=== PATIENT | female | born 1970 | race Hispanic/Latino ===

== ENCOUNTER 2017-10-28 03:21 | Emergency (ER) | payer SELFPAY ==
[2017-10-28 04:43] LABS: Basophils # (Auto) 0.1 K/mm3 (0.0-0.1); Basophils % (Auto) 0.8 % (0.0-1.8); Eosinophils # (Auto) 0.4 K/mm3 (0.0-0.4); Eosinophils % (Auto) 4.7 % (0.0-4.3); Hematocrit 38.1 % (30.3-42.9); Lymphocytes % (Auto) 23.6 % (13.4-35.0); Mean Corpuscular HGB Conc 32 % (30-34); Mean Corpuscular Hemoglobin 26 pg (28-32); Mean Corpuscular Volume 81 fl (79-97); Monocytes # (Auto) 0.5 K/mm3 (0.0-0.8); Monocytes % (Auto) 5.7 % (0.0-7.3); Platelet Count 307 K/mm3 (140-440); Red Cell Distribution Width 20.9 % (13.2-15.2)
[2017-10-28 04:56] LABS: Alanine Aminotransferase 8 units/L (7-56); Albumin 4.1 g/dL (3.9-5); BUN/Creatinine Ratio 20; Blood Urea Nitrogen 18 mg/dL (7-17); Calcium 8.5 mg/dL (8.4-10.2); Hemolysis Index 1
[2017-10-28 06:12] LABS: Bacteria,Urine 1+ /HPF (Negative); Bilirubin,Urine NEG (Negative); Blood,Urine LG (Negative); Color,Urine Yellow (Yellow); Hyaline Casts,Urine 35 /LPF; Mucus,Urine 3+ /HPF; Urobilinogen,Urine < 2.0 mg/dL (<2.0)
[2017-10-28 06:16] LABS: HCG Qualitative,Urine Negative (Negative)
--- NOTE | 2017-10-28 06:19 | Emergency Department Report ---
ED Female HPI - General Chief complaint: Vaginal Bleeding Stated complaint: VAGINAL BLEEDING Time Seen by Provider: 10/28/17 06:17 Source: patient, EMS Mode of arrival: Stretcher Limitations: No Limitations - History of Present Illness Initial comments: 47-year-old female states that she was amenorrheic essentially since July and then started having a period a few days ago. Prior to that she stated that she had normal menses of 4-5 days every month. The patient denies fever or chills. She is comfortably and talking on her cell phone now. 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 MD Complaint: vaginal bleeding -: Gradual Worsens with: none - Related Data Previous Rx's Medication Instructions Recorded Last Taken Type HYDROcodone/APAP 10-325 [[place] 1 each PO Q6HR PRN #30 tablet 09/02/13 Unknown Rx 10-325 mg TAB] Lisinopril/Hydrochlorothiazide 1 each PO QDAY #30 tablet 09/02/13 Unknown Rx [Zestoretic 20-25 mg] Cefuroxime [Ceftin] 250 mg PO Q12H #14 tablet 10/28/17 Unknown Rx Allergies Allergy/AdvReac Type Severity Reaction Status Date / Time No Known Allergies Allergy Verified 09/02/13 06:55 ED Review of Systems ROS: Stated complaint: VAGINAL BLEEDING Other details as noted in HPI Constitutional: denies: chills, fever Eyes: denies: eye pain, eye discharge, vision change ENT: denies: ear pain, throat pain Respiratory: denies: cough, shortness of breath, wheezing Cardiovascular: denies: chest pain, palpitations Endocrine: no symptoms reported Gastrointestinal: denies: abdominal pain, nausea, diarrhea Genitourinary: as per HPI, abnormal menses. denies: urgency, dysuria, discharge Musculoskeletal: denies: back pain, joint swelling, arthralgia Skin: denies: rash, lesions Neurological: denies: headache, weakness, paresthesias Psychiatric: denies: anxiety, depression Hematological/Lymphatic: denies: easy bleeding, easy bruising ED Past Medical Hx - Past Medical History Previous Medical History?: Yes Hx Hypertension: Yes (out of medications for 3 years) - Social History Smoking Status: Current Every Day Smoker Substance Use Type: Alcohol Other Social History: Further social history as per triage note - Medications Home Medications: Home Medications Medication Instructions Recorded Confirmed Last Taken Type HYDROcodone/APAP 10-325 [[place] 1 each PO Q6HR PRN #30 tablet 09/02/13 Unknown Rx 10-325 mg TAB] Lisinopril/Hydrochlorothiazide 1 each PO QDAY #30 tablet 09/02/13 Unknown Rx [Zestoretic 20-25 mg] Cefuroxime [Ceftin] 250 mg PO Q12H #14 tablet 10/28/17 Unknown Rx ED Physical Exam - General Limitations: No Limitations General appearance: alert, in no apparent distress - Head Head exam: Present: atraumatic, normocephalic - Eye Eye exam: Present: normal appearance, PERRL, EOMI. Absent: scleral icterus - ENT ENT exam: Present: mucous membranes moist - Neck Neck exam: Present: normal inspection - Respiratory Respiratory exam: Present: normal lung sounds bilaterally. Absent: respiratory distress - Cardiovascular Cardiovascular Exam: Present: regular rate, normal rhythm. Absent: systolic murmur, diastolic murmur, rubs, gallop - GI/Abdominal GI/Abdominal exam: Present: soft, normal bowel sounds. Absent: distended, tenderness, guarding, rebound, rigid, organomegaly, mass, bruit, pulsatile mass , hernia - Extremities Exam Extremities exam: Present: normal inspection - Back Exam Back exam: Present: normal inspection. Absent: CVA tenderness (R), CVA tenderness (L) - Neurological Exam Neurological exam: Present: alert, oriented X3, CN II-XII intact. Absent: motor sensory deficit - Psychiatric Psychiatric exam: Present: normal affect, normal mood - Skin Skin exam: Present: warm, dry, intact, normal color. Absent: rash ED Course Vital Signs 10/28/17 03:44 Temperature 98.8 F Pulse Rate 98 H Respiratory 18 Rate Blood Pressure 149/71 Blood Pressure 149/71 [Left] O2 Sat by Pulse 100 Oximetry - Reevaluation(s) Reevaluation #1: No complaints of pain in the emergency department. 10/28/17 09:24 Reevaluation #2: The patient was given a copy of her ultrasound. She was directed that it requires follow-up and repeat and referred to [facility]GER. 10/28/17 09:25 ED Medical Decision Making - Lab Data Result diagrams: 10/28/17 04:31 10/28/17 04:31 Laboratory Results - last 24 hr 04/0710/28/17 10/28/17 04:31 04:31 05:38 WBC 8.3 RBC 4.70 Hgb 12.0 Hct 38.1 MCV 81 MCH 26 L MCHC 32 RDW 20.9 H Plt Count 307 Lymph % (Auto) 23.6 [place] % (Auto) 5.7 Eos % (Auto) 4.7 H Baso % (Auto) 0.8 Lymph # 2.0 [place] # 0.5 Eos # 0.4 Baso # 0.1 Seg Neutrophils % 65.2 Seg Neutrophils # 5.4 Sodium 141 Potassium 4.2 Chloride 104.1 Carbon Dioxide 22 Anion Gap 19 BUN 18 H Creatinine 0.9 Estimated GFR > 60 BUN/Creatinine Ratio 20 Glucose 110 H Calcium 8.5 Total Bilirubin < 0.20 AST 15 ALT 8 Alkaline Phosphatase 70 Total Protein 6.8 Albumin 4.1 Albumin/Globulin Ratio 1.5 Urine Color Yellow Urine Turbidity Slightly cloudy Urine pH 5.0 Ur Specific [place] 1.027 Urine Protein 30 mg/dl Urine Glucose (UA) Neg Urine Ketones Neg Urine Blood Lg Urine Nitrite Pos Urine Bilirubin Neg Urine Urobilinogen < 2.0 Ur Leukocyte Esterase Mod Urine WBC (Auto) 52.0 H Urine RBC (Auto) 5.0 U Epithel Cells (Auto) 5.0 Urine Bacteria (Auto) 1+ Ur Renal Epithelial Cell Not Reportable Hyaline Casts 35 Urine Mucus 3+ Urine HCG, Qual Negative - Radiology Data Radiology results: report reviewed (ultrasound with fibroids and complex ovarian cyst) Critical care attestation.: If time is entered above; I have spent that time in minutes in the direct care of this critically ill patient, excluding procedure time. ED Disposition Clinical Impression: Dysfunctional uterine bleeding Uterine leiomyoma Qualifiers: Uterine leiomyoma location: unspecified location Qualified Code(s): D25.9 - Leiomyoma of uterus, unspecified Ovarian cyst Qualifiers: Laterality: left Qualified Code(s): N83.202 - Unspecified ovarian cyst, left side Acute cystitis Qualifiers: Hematuria presence: without hematuria Qualified Code(s): N30.00 - Acute cystitis without hematuria Disposition: TO HOME OR SELFCARE Is pt being admited?: No Does the pt Need Aspirin: No Condition: Stable Instructions: Urinary Tract Infection in Women (ED), Dysfunctional Uterine Bleeding (ED), Uterine Fibroids (ED), Ovarian Cyst (ED) Additional Instructions: Follow-up with annealing oven operator. It is recommended ultrasound should be repeated in 6 weeks per radiologist. Rx antibiotic for urinary tract infection. A urine culture is pending to verify that he return antibiotic is appropriate for the bacteria causing your UTI. Prescriptions: Cefuroxime [Ceftin] 250 mg PO Q12H #14 tablet Referrals: ERASMO MACEDO MD [Primary Care Provider] - 3-5 Days [facility] [Provider Group] - 2-3 Days Time of Disposition: 09:29
--- NOTE | 2017-10-28 08:04 | Ultrasound Report ---
FINAL REPORT EXAM: US PELVIC COMPLETE, US TRANSVAGINAL HISTORY: Vaginal bleeding. TECHNIQUE: Directed transabdominal and transvaginal ultrasound examination of the pelvis was performed. No prior studies are available for comparison. FINDINGS: The uterus is anteverted, and measures 4.5 x 4.2 x 7.6 cm. There are several subcentimeter nabothian cysts in the cervix. There are ovoid hypoechoic lesions in the uterus, measuring 1.5 x 1.4 x 2.0 cm in the subendometrial fundus, and 1.9 x 1.7 x 2.0 cm in the anterior fundus. These most likely represent fibroids. The endometrium measures 0.9 cm, within normal limits for patient's age. The right ovary measures 2.8 x 2.4 x 3.7 cm, and contains normal subcentimeter follicles. The left ovary measures 2.7 x 1.4 x 3.6 cm, and also contains subcentimeter follicles. The left ovary also demonstrates a solid hypoechoic lesion measuring 1.1 cm, probably representing hemorrhagic cyst. There is appropriate color doppler flow in both ovaries, without evidence of torsion. No other adnexal mass is seen. There is no significant pelvic free fluid. IMPRESSION: 1. Probable uterine fibroids, including 1.5 x 1.4 x 2.0 cm subendometrial lesion at the fundus. 2. 1.1 cm complex left ovarian lesion, probably hemorrhagic cyst. Given internal complexity, follow-up exam in 6-8 weeks is recommended to document resolution.
[2017-10-28 09:44] VITALS: BP 136/67
== END 2017-10-28 09:41 | disposition home or self-care (01) ==
LOC: ED 03:21
DX: D25.9 Leiomyoma of uterus, unspecified (principal); N83.202 Unspecified ovarian cyst, left side; N30.00 Acute cystitis without hematuria; I10 Essential (primary) hypertension; F17.200 Nicotine dependence, unspecified, uncomplicated
CPT/HCPCS: 36415; 76830; 76856; 80053; 81001; 81025; 85025; 87076; 87086; 87186; 99284

== ENCOUNTER 2018-01-15 17:43 | Inpatient (IN) | payer OTHER ==
[2018-01-15] MEDS ORDERED: NACL 0.9% 1000 ML IV ONE (18:06)
[2018-01-15 18:42] LABS: Hematocrit 36.8 % (30.3-42.9); Hemoglobin 11.8 gm/dl (10.1-14.3); Mean Corpuscular HGB Conc 32 % (30-34); Mean Corpuscular Volume 80 fl (79-97); Platelet Count 247 K/mm3 (140-440); Red Blood Count 4.59 M/mm3 (3.65-5.03); Red Cell Distribution Width 17.2 % (13.2-15.2)
[2018-01-15 18:48] LABS: Mean Corpuscular Hemoglobin 26 pg (28-32)
[2018-01-15 18:56] LABS: Alanine Aminotransferase 12 units/L (7-56); Albumin 3.8 g/dL (3.9-5); BUN/Creatinine Ratio 11; Blood Urea Nitrogen 10 mg/dL (7-17); Calcium 8.9 mg/dL (8.4-10.2); Hemolysis Index 8
[2018-01-15] MEDS ORDERED: ZOSYN/NS 4.5GM/100ML 4.5 GM/100 ML VIAL IV SCH (19:00)
[2018-01-15] MEDS ORDERED: VANCOMYCIN/NS 1 GM/250 ML 1 GM/250 ML BAG IV ONE (19:00)
--- NOTE | 2018-01-15 19:27 | XRay Report ---
FINAL REPORT PROCEDURE: Semi upright AP chest x-ray TECHNIQUE: Chest radiograph anteroposterior view. CPT 80639 HISTORY: dyspnea COMPARISON: No prior studies are available for comparison. FINDINGS: Heart: Magnified due to projection, appears to be normal size.. Mediastinum/Vessels: Normal. Lungs/Pleural space: Normal. Bony thorax: No acute osseous abnormality. Life support devices: None. IMPRESSION: No acute cardiopulmonary abnormality.
[2018-01-15 19:32] LABS: Basophils % (Manual) 0 % (0.0-1.8); Eosinophils % (Manual) 0 % (0.0-4.3); Total Cells Counted 100
[2018-01-15 19:34] LABS: Anisocytosis Few
[2018-01-15] MEDS: VANCOMYCIN 1,000 MG in NACL 0.9% 500 ML 500 ML IV ONE ×2 (19:45→19:49)
[2018-01-15 19:54] LABS: Benzodiazepines Screen,Urine PRESUMPTIVE NEGATIVE; Cocaine Screen,Urine PRESUMPTIVE NEGATIVE; Methadone Screen,Urine PRESUMPTIVE NEGATIVE; Opiate Screen,Urine PRESUMPTIVE NEGATIVE
[2018-01-15 20:06] LABS: Bilirubin,Urine NEG (Negative); Blood,Urine NEG (Negative); Color,Urine Yellow (Yellow); Mucus,Urine FEW /HPF; Protein,Urine <15 mg/dL mg/dL (Negative); Urobilinogen,Urine < 2.0 mg/dL (<2.0)
[2018-01-15 20:15] LABS: Amphetamine Screen,Urine PRESUMPTIVE POSITIVE; Cannabinoid Screen,Urine PRESUMPTIVE POSITIVE
--- NOTE | 2018-01-15 22:07 | Cat Scan Report ---
FINAL REPORT PROCEDURE: CT ANGIO CHEST TECHNIQUE: Computerized tomographic angiography of the chest was performed during the IV injection of iodinated nonionic contrast including image processing. The image data was postprocessed using 2-dimensional multiplanar reformatted (MPR) techniques. HISTORY: sob, elevated ddimer COMPARISON: No prior studies are available for comparison. FINDINGS: There is Pulmonary outflow tract, right and left main pulmonary arteries and their proximal branches: Clear, no filling defects seen to suggest pulmonary embolus. Pericardium: No evidence of pericardial effusion. Thoracic aorta: No evidence of aortic dissection. There is borderline aneurysmal dilatation of the ascending thoracic aorta measuring 4 centimeters by 3.8 centimeter. Coronary arteries: Are partially calcified indicating atherosclerotic disease. Mediastinum and hilar regions: Nonspecific subcentimeter lymph nodes are visualized. No pathologically enlarged lymph nodes or masses are identified. Partially calcified lymph nodes seen in the inferior aspect of the left hilum. There also partially calcified lymph nodes in the infra carinal region. Lung [place]: Small calcified granuloma is seen in the left lower lobe. A small amount of dependent atelectasis visualized bilaterally. No effusions are seen. No masses are detected. Upper abdomen: Possible wall thickening or small amount of fluid in the gallbladder fossa. Gallbladder is otherwise unremarkable. The entire gallbladder is not included on this exam. Other: None IMPRESSION: No evidence of pulmonary embolus. Atherosclerosis coronary arteries. Borderline aneurysmal dilatation ascending thoracic aorta. No dissection is seen. Prior granulomatous disease. Possible gallbladder wall thickening or small amount of fluid in the gallbladder fossa. The entire gallbladder is not visualized. If clinically indicated gallbladder ultrasound could be obtained for further evaluation.
[2018-01-15] MEDS: LOPRESSOR IV ONE ×2 (23:00→23:40)
[2018-01-15] MEDS ORDERED: TYLENOL PO ONE (23:32)
--- NOTE | 2018-01-16 00:26 | Ultrasound Report ---
FINAL REPORT PROCEDURE: US ABDOMEN LIMITED TECHNIQUE: Real-time sonography was performed of the right upper quadrant with image documentation. CPT 25478 HISTORY: possible GB wall thickening, fever abd pain COMPARISON: Prior CT scan of the chest performed earlier today. FINDINGS: Gallbladder wall appears mildly thickened measuring 3.8 millimeters. There appears to be a small amount of fluid in the gallbladder fossa. Small echogenic foci are seen in the gallbladder which may reflect sludge. No formed gallstones are seen. Common bile duct is normal caliber measuring 3 millimeters. The intrahepatic ducts are not distended. Liver echogenicity appears normal. No ascites is seen. The right kidney showed no focal abnormality measuring 10.3 centimeters greatest length. Proximal abdominal aorta was unremarkable. Mid and distal abdominal aorta were not visualized. IMPRESSION: Mild gallbladder wall thickening and minimal fluid in the gallbladder fossa. Subtle echogenic foci are seen in the gallbladder which may reflect sludge. If clinically indicated nuclear medicine HIDA scan could be performed to exclude acute cholecystitis.
--- NOTE | 2018-01-16 00:41 | Emergency Department Report ---
ED General Adult HPI - General Chief complaint: Fever Stated complaint: FEVER/GENERAL ILLNESS Time Seen by Provider: 01/15/18 18:04 Source: EMS Mode of arrival: Ambulatory Limitations: No Limitations - History of Present Illness Initial comments: Immunization is a 47-year-old female who is presenting with fever. Patient states that she is feeling weak and tired for the past several days. Patient is a poor historian and is unable to give specifics as far as her history. Patient states that she has had some mild shortness of breath but denies any cough or congestion. Patient states to the nursing staff that she also had some abdominal discomfort however she is denying this to me. Patient denies any headaches and neck stiffness and diarrhea vomiting sore throat cough cold congestion. Severity scale (0 -10): 1 - Related Data Previous Rx's Medication Instructions Recorded Last Taken Type HYDROcodone/APAP 10-325 [[place] 1 each PO Q6HR PRN #30 tablet 09/02/13 Unknown Rx 10-325 mg TAB] Lisinopril/Hydrochlorothiazide 1 each PO QDAY #30 tablet 09/02/13 Unknown Rx [Zestoretic 20-25 mg] Cefuroxime [Ceftin] 250 mg PO Q12H #14 tablet 10/28/17 Unknown Rx Allergies Allergy/AdvReac Type Severity Reaction Status Date / Time No Known Allergies Allergy Verified 09/02/13 06:55 ED Review of Systems ROS: Stated complaint: FEVER/GENERAL ILLNESS Other details as noted in HPI Comment: All other systems reviewed and negative ED Past Medical Hx - Past Medical History Previous Medical History?: Yes Hx Hypertension: Yes (out of medications for 3 years) Hx CVA: No Hx Heart Attack/AMI: No Hx Congestive Heart Failure: No Hx Diabetes: No Hx Deep Vein Thrombosis: No Hx Pulmonary Embolism: No Hx GERD: No Hx Liver Disease: No Hx Renal Disease: No Hx of Cancer: No Hx Sickle Cell Disease: No Hx Arthritis: No Hx Headaches / Migraines: No Hx Seizures: No Hx Kidney Stones: No Hx Psychiatric Treatment: No Hx Asthma: No Hx COPD: No Hx Tuberculosis: No Hx Dementia: No Hx HIV: No - Surgical History Past Surgical History?: No Hx Coronary Stent: No Hx Open Heart Surgery: No Hx Pacemaker: No Hx Internal Defibrillator: No Hx Cholecystectomy: No Hx Appendectomy: No Hx Breast Surgery: No - Social History Smoking Status: Former Smoker Substance Use Type: None - Medications Home Medications: Home Medications Medication Instructions Recorded Confirmed Last Taken Type HYDROcodone/APAP 10-325 [[place] 1 each PO Q6HR PRN #30 tablet 09/02/13 Unknown Rx 10-325 mg TAB] Lisinopril/Hydrochlorothiazide 1 each PO QDAY #30 tablet 09/02/13 Unknown Rx [Zestoretic 20-25 mg] Cefuroxime [Ceftin] 250 mg PO Q12H #14 tablet 10/28/17 Unknown Rx ED Physical Exam - General Limitations: No Limitations General appearance: alert, lethargic - Head Head exam: Present: atraumatic, normocephalic - Eye Eye exam: Present: normal appearance - ENT ENT exam: Present: mucous membranes moist - Neck Neck exam: Present: normal inspection - Respiratory Respiratory exam: Present: normal lung sounds bilaterally. Absent: respiratory distress, wheezes, rales, rhonchi - Cardiovascular Cardiovascular Exam: Present: normal rhythm, tachycardia. Absent: systolic murmur, diastolic murmur, rubs, gallop - GI/Abdominal GI/Abdominal exam: Present: soft, normal bowel sounds. Absent: distended, tenderness, guarding, rebound - Extremities Exam Extremities exam: Present: normal inspection - Back Exam Back exam: Present: normal inspection - Neurological Exam Neurological exam: Present: alert, oriented X3 - Psychiatric Psychiatric exam: Present: normal affect, normal mood - Skin Skin exam: Present: warm, dry, intact, normal color. Absent: rash ED Course Vital Signs 01/15/18 01/15/18 01/15/18 17:49 18:00 18:02 Temperature 101.8 F H Pulse Rate 136 H 135 H Respiratory 26 H 18 Rate Blood Pressure 147/83 140/82 Blood Pressure 142/82 [Right] O2 Sat by Pulse 90 91 92 Oximetry 01/15/18 01/15/18 01/15/18 18:16 18:30 18:46 Temperature Pulse Rate 123 H 126 H 125 H Respiratory 17 17 22 Rate Blood Pressure 147/83 147/83 Blood Pressure [Right] O2 Sat by Pulse 100 99 97 Oximetry 01/15/18 01/15/18 01/15/18 19:00 19:16 19:30 Temperature Pulse Rate Respiratory 15 19 20 Rate Blood Pressure 147/83 147/83 147/83 Blood Pressure [Right] O2 Sat by Pulse 95 97 98 Oximetry 01/15/18 01/15/18 01/15/18 19:43 19:46 20:00 Temperature Pulse Rate 126 H 125 H Respiratory 18 27 H 24 Rate Blood Pressure 147/83 136/76 Blood Pressure [Right] O2 Sat by Pulse 100 97 96 Oximetry 01/15/18 23:40 Temperature Pulse Rate Respiratory Rate Blood Pressure 133/85 Blood Pressure [Right] O2 Sat by Pulse Oximetry ED Medical Decision Making - Lab Data Result diagrams: 01/15/18 18:20 01/15/18 18:20 Lab Results 01/15/18 01/15/18 01/15/18 Range/Units 18:20 18:20 18:20 WBC 15.3 H (4.5-11.0) K/mm3 RBC 4.59 (3.65-5.03) M/mm3 Hgb 11.8 (10.1-14.3) gm/dl Hct 36.8 (30.3-42.9) % MCV 80 (79-97) fl MCH 26 L (28-32) pg MCHC 32 (30-34) % RDW 17.2 H (13.2-15.2) % Plt Count 247 (140-440) K/mm3 Add Manual Diff Complete Total Counted 100 Seg Neutrophils % [facility]ox[facility] Specialist Seg Neuts % (Manual) 97.0 H (40.0-70.0) % Band Neutrophils % 0 % Lymphocytes % (Manual) 2.0 L (13.4-35.0) % Reactive Lymphs % (Man) 0 % Monocytes % (Manual) 1.0 (0.0-7.3) % Eosinophils % (Manual) 0 (0.0-4.3) % Basophils % (Manual) 0 (0.0-1.8) % Metamyelocytes % 0 % Myelocytes % 0 % Promyelocytes % 0 % Blast Cells % 0 % Nucleated RBC % Not Reportable Seg Neutrophils # Man 14.8 H (1.8-7.7) K/mm3 Band Neutrophils # 0.0 K/mm3 Lymphocytes # (Manual) 0.3 L (1.2-5.4) K/mm3 Abs React Lymphs (Man) 0.0 K/mm3 Monocytes # (Manual) 0.2 (0.0-0.8) K/mm3 Eosinophils # (Manual) 0.0 (0.0-0.4) K/mm3 Basophils # (Manual) 0.0 (0.0-0.1) K/mm3 Metamyelocytes # 0.0 K/mm3 Myelocytes # 0.0 K/mm3 Promyelocytes # 0.0 K/mm3 Blast Cells # 0.0 K/mm3 WBC Morphology Not Reportable Hypersegmented Neuts Not Reportable Hyposegmented Neuts Not Reportable Hypogranular Neuts Not Reportable Smudge Cells Not Reportable Toxic Granulation Not Reportable Toxic Vacuolation Not Reportable Dohle Bodies Not Reportable Pelger-Huet Anomaly Not Reportable Nicolas Rods Not Reportable Platelet Estimate Appears normal Clumped Platelets Not Reportable Plt Clumps, EDTA Not Reportable Large Platelets Not Reportable Giant Platelets Not Reportable Platelet Satelliting Not Reportable Plt Morphology Comment Not Reportable RBC Morphology Not Reportable Dimorphic RBCs Not Reportable Polychromasia Not Reportable Hypochromasia Not Reportable Poikilocytosis Not Reportable Anisocytosis Few Microcytosis Not Reportable Macrocytosis Not Reportable Spherocytes Not Reportable Pappenheimer Bodies Not Reportable Sickle Cells Not Reportable Target Cells Not Reportable Tear Drop Cells Not Reportable Ovalocytes Not Reportable Helmet Cells Not Reportable [place] Bodies Not Reportable [place] Rings Not Reportable Lenin Cells Not Reportable Bite Cells Not Reportable Crenated Cell Not Reportable Elliptocytes Not Reportable Acanthocytes (Spur) Not Reportable Rouleaux Not Reportable Hemoglobin C Crystals Not Reportable Schistocytes Not Reportable Malaria parasites Not Reportable Zozy Bodies Not Reportable Hem Pathologist Commnt No D-Dimer 2713.80 H (0-234) ng/mlDDU Sodium 133 L (137-145) mmol/L Potassium 3.2 L (3.6-5.0) mmol/L Chloride 96.8 L (98-107) mmol/L Carbon Dioxide 21 L (22-30) mmol/L Anion Gap 18 mmol/L BUN 10 (7-17) mg/dL Creatinine 0.9 (0.7-1.2) mg/dL Estimated GFR > 60 ml/min BUN/Creatinine Ratio 11 % Glucose 92 (65-100) mg/dL Lactic Acid (0.7-2.0) mmol/L Calcium 8.9 (8.4-10.2) mg/dL Total Bilirubin 0.50 (0.1-1.2) mg/dL AST 22 (5-40) units/L ALT 12 (7-56) units/L Alkaline Phosphatase 76 (35-129) units/L Total Protein 7.2 (6.3-8.2) g/dL Albumin 3.8 L (3.9-5) g/dL Albumin/Globulin Ratio 1.1 % Urine Color (Yellow) Urine Turbidity (Clear) Urine pH (5.0-7.0) Ur Specific [place] (1.003-1.030) Urine Protein (Negative) mg/dL Urine Glucose (UA) (Negative) mg/dL Urine Ketones (Negative) mg/dL Urine Blood (Negative) Urine Nitrite (Negative) Urine Bilirubin (Negative) Urine Urobilinogen (<2.0) mg/dL Ur Leukocyte Esterase (Negative) Urine WBC (Auto) (0.0-6.0) /HPF Urine RBC (Auto) (0.0-6.0) /HPF Urine Mucus /HPF Urine Opiates Screen Urine Methadone Screen Ur Barbiturates Screen Ur Phencyclidine Scrn Ur Amphetamines Screen U Benzodiazepines Scrn Urine Cocaine Screen U Marijuana (THC) Screen Drugs of Abuse Note 01/15/18 01/15/18 01/15/18 Range/Units 18:20 18:45 18:45 WBC (4.5-11.0) K/mm3 RBC (3.65-5.03) M/mm3 Hgb (10.1-14.3) gm/dl Hct (30.3-42.9) % MCV (79-97) fl MCH (28-32) pg MCHC (30-34) % RDW (13.2-15.2) % Plt Count (140-440) K/mm3 Add Manual Diff Total Counted Seg Neutrophils % Seg Neuts % (Manual) (40.0-70.0) % Band Neutrophils % % Lymphocytes % (Manual) (13.4-35.0) % Reactive Lymphs % (Man) % Monocytes % (Manual) (0.0-7.3) % Eosinophils % (Manual) (0.0-4.3) % Basophils % (Manual) (0.0-1.8) % Metamyelocytes % % Myelocytes % % Promyelocytes % % Blast Cells % % Nucleated RBC % Seg Neutrophils # Man (1.8-7.7) K/mm3 Band Neutrophils # K/mm3 Lymphocytes # (Manual) (1.2-5.4) K/mm3 Abs React Lymphs (Man) K/mm3 Monocytes # (Manual) (0.0-0.8) K/mm3 Eosinophils # (Manual) (0.0-0.4) K/mm3 Basophils # (Manual) (0.0-0.1) K/mm3 Metamyelocytes # K/mm3 Myelocytes # K/mm3 Promyelocytes # K/mm3 Blast Cells # K/mm3 WBC Morphology Hypersegmented Neuts Hyposegmented Neuts Hypogranular Neuts Smudge Cells Toxic Granulation Toxic Vacuolation Dohle Bodies Pelger-Huet Anomaly Nicolas Rods Platelet Estimate Clumped Platelets Plt Clumps, EDTA Large Platelets Giant Platelets Platelet Satelliting Plt Morphology Comment RBC Morphology Dimorphic RBCs Polychromasia Hypochromasia Poikilocytosis Anisocytosis Microcytosis Macrocytosis Spherocytes Pappenheimer Bodies Sickle Cells Target Cells Tear Drop Cells Ovalocytes Helmet Cells [place] Bodies [place] Rings [place] Cells Bite Cells Crenated Cell Elliptocytes Acanthocytes (Spur) Rouleaux Hemoglobin C Crystals Schistocytes Malaria parasites Ozzy Bodies Hem Pathologist Commnt D-Dimer (0-234) ng/mlDDU Sodium (137-145) mmol/L Potassium (3.6-5.0) mmol/L Chloride (98-107) mmol/L Carbon Dioxide (22-30) mmol/L Anion Gap mmol/L BUN (7-17) mg/dL Creatinine (0.7-1.2) mg/dL Estimated GFR ml/min BUN/Creatinine Ratio % Glucose (65-100) mg/dL Lactic Acid 1.50 (0.7-2.0) mmol/L Calcium (8.4-10.2) mg/dL Total Bilirubin (0.1-1.2) mg/dL AST (5-40) units/L ALT (7-56) units/L Alkaline Phosphatase (35-129) units/L Total Protein (6.3-8.2) g/dL Albumin (3.9-5) g/dL Albumin/Globulin Ratio % Urine Color Yellow (Yellow) Urine Turbidity Clear (Clear) Urine pH 6.0 (5.0-7.0) Ur Specific [place] 1.011 (1.003-1.030) Urine Protein <15 mg/dl (Negative) mg/dL Urine Glucose (UA) Neg (Negative) mg/dL Urine Ketones Neg (Negative) mg/dL Urine Blood Neg (Negative) Urine Nitrite Pos (Negative) Urine Bilirubin Neg (Negative) Urine Urobilinogen < 2.0 (<2.0) mg/dL Ur Leukocyte Esterase Tr (Negative) Urine WBC (Auto) 1.0 (0.0-6.0) /HPF Urine RBC (Auto) 1.0 (0.0-6.0) /HPF Urine Mucus Few /HPF Urine Opiates Screen Presumptive negative Urine Methadone Screen Presumptive negative Ur Barbiturates Screen Presumptive negative Ur Phencyclidine Scrn Presumptive negative Ur Amphetamines Screen Presumptive positive U Benzodiazepines Scrn Presumptive negative Urine Cocaine Screen Presumptive negative U Marijuana (THC) Screen Presumptive positive Drugs of Abuse Note Disclamer 01/15/18 Range/Units 21:19 WBC (4.5-11.0) K/mm3 RBC (3.65-5.03) M/mm3 Hgb (10.1-14.3) gm/dl Hct (30.3-42.9) % MCV (79-97) fl MCH (28-32) pg MCHC (30-34) % RDW (13.2-15.2) % Plt Count (140-440) K/mm3 Add Manual Diff Total Counted Seg Neutrophils % Seg Neuts % (Manual) (40.0-70.0) % Band Neutrophils % % Lymphocytes % (Manual) (13.4-35.0) % Reactive Lymphs % (Man) % Monocytes % (Manual) (0.0-7.3) % Eosinophils % (Manual) (0.0-4.3) % Basophils % (Manual) (0.0-1.8) % Metamyelocytes % % Myelocytes % % Promyelocytes % % Blast Cells % % Nucleated RBC % Seg Neutrophils # Man (1.8-7.7) K/mm3 Band Neutrophils # K/mm3 Lymphocytes # (Manual) (1.2-5.4) K/mm3 Abs React Lymphs (Man) K/mm3 Monocytes # (Manual) (0.0-0.8) K/mm3 Eosinophils # (Manual) (0.0-0.4) K/mm3 Basophils # (Manual) (0.0-0.1) K/mm3 Metamyelocytes # K/mm3 Myelocytes # K/mm3 Promyelocytes # K/mm3 Blast Cells # K/mm3 WBC Morphology Hypersegmented Neuts Hyposegmented Neuts Hypogranular Neuts Smudge Cells Toxic Granulation Toxic Vacuolation Dohle Bodies Pelger-Huet Anomaly Nicolas Rods Platelet Estimate Clumped Platelets Plt Clumps, EDTA Large Platelets Giant Platelets Platelet Satelliting Plt Morphology Comment RBC Morphology Dimorphic RBCs Polychromasia Hypochromasia Poikilocytosis Anisocytosis Microcytosis Macrocytosis Spherocytes Pappenheimer Bodies Sickle Cells Target Cells Tear Drop Cells Ovalocytes Helmet Cells [place] Bodies [place] Rings Lenin Cells Bite Cells Crenated Cell Elliptocytes Acanthocytes (Spur) Rouleaux Hemoglobin C Crystals Schistocytes Malaria parasites Ozzy Bodies Hem Pathologist Commnt D-Dimer (0-234) ng/mlDDU Sodium (137-145) mmol/L Potassium (3.6-5.0) mmol/L Chloride (98-107) mmol/L Carbon Dioxide (22-30) mmol/L Anion Gap mmol/L BUN (7-17) mg/dL Creatinine (0.7-1.2) mg/dL Estimated GFR ml/min BUN/Creatinine Ratio % Glucose (65-100) mg/dL Lactic Acid 1.50 (0.7-2.0) mmol/L Calcium (8.4-10.2) mg/dL Total Bilirubin (0.1-1.2) mg/dL AST (5-40) units/L ALT (7-56) units/L Alkaline Phosphatase (35-129) units/L Total Protein (6.3-8.2) g/dL Albumin (3.9-5) g/dL Albumin/Globulin Ratio % Urine Color (Yellow) Urine Turbidity (Clear) Urine pH (5.0-7.0) Ur Specific [place] (1.003-1.030) Urine Protein (Negative) mg/dL Urine Glucose (UA) (Negative) mg/dL Urine Ketones (Negative) mg/dL Urine Blood (Negative) Urine Nitrite (Negative) Urine Bilirubin (Negative) Urine Urobilinogen (<2.0) mg/dL Ur Leukocyte Esterase (Negative) Urine WBC (Auto) (0.0-6.0) /HPF Urine RBC (Auto) (0.0-6.0) /HPF Urine Mucus /HPF Urine Opiates Screen Urine Methadone Screen Ur Barbiturates Screen Ur Phencyclidine Scrn Ur Amphetamines Screen U Benzodiazepines Scrn Urine Cocaine Screen U Marijuana (THC) Screen Drugs of Abuse Note - EKG Data Interpretation: other (strip was reviewed and shows a sinus tachycardia) - Radiology Data Patient: OBEY GONSALEZ MR#: [id number] : 1970 Acct:[id number] Age/Sex: 47 / F ADM Date: 01/15/18 Loc: ED Attending Dr: Ordering Physician: MORGAN HORNE MD Date of Service: 01/15/18 Procedure(s): XR chest 1V ap Accession Number(s): [id number] cc: MORGAN HORNE MD Fluoro Time In Minutes: FINAL REPORT PROCEDURE: Semi upright AP chest x-ray TECHNIQUE: Chest radiograph anteroposterior view. CPT 94098 HISTORY: dyspnea COMPARISON: No prior studies are available for comparison. FINDINGS: Heart: Magnified due to projection, appears to be normal size.. Mediastinum/Vessels: Normal. Lungs/Pleural space: Normal. Bony thorax: No acute osseous abnormality. Life support devices: None. IMPRESSION: No acute cardiopulmonary abnormality. Patient: OBEY GONSALEZ MR#: [id number] : 1970 Acct:[id number] Age/Sex: 47 / F ADM Date: 01/15/18 Loc: ED Attending Dr: Ordering Physician: MORGAN HORNE MD Date of Service: 01/15/18 Procedure(s): CT angio chest Accession Number(s): [id number] cc: MORGAN HORNE MD FINAL REPORT PROCEDURE: CT ANGIO CHEST TECHNIQUE: Computerized tomographic angiography of the chest was performed during the IV injection of iodinated nonionic contrast including image processing. The image data was postprocessed using 2-dimensional multiplanar reformatted (MPR) techniques. HISTORY: sob, elevated ddimer COMPARISON: No prior studies are available for comparison. FINDINGS: There is Pulmonary outflow tract, right and left main pulmonary arteries and their proximal branches: Clear, no filling defects seen to suggest pulmonary embolus. Pericardium: No evidence of pericardial effusion. Thoracic aorta: No evidence of aortic dissection. There is borderline aneurysmal dilatation of the ascending thoracic aorta measuring 4 centimeters by 3.8 centimeter. Coronary arteries: Are partially calcified indicating atherosclerotic disease. Mediastinum and hilar regions: Nonspecific subcentimeter lymph nodes are visualized. No pathologically enlarged lymph nodes or masses are identified. Partially calcified lymph nodes seen in the inferior aspect of the left hilum. There also partially calcified lymph nodes in the infra carinal region. Lung [place]: Small calcified granuloma is seen in the left lower lobe. A small amount of dependent atelectasis visualized bilaterally. No effusions are seen. No masses are detected. Upper abdomen: Possible wall thickening or small amount of fluid in the gallbladder fossa. Gallbladder is otherwise unremarkable. The entire gallbladder is not included on this exam. Other: None IMPRESSION: No evidence of pulmonary embolus. Atherosclerosis coronary arteries. Borderline aneurysmal dilatation ascending thoracic aorta. No dissection is seen. Prior granulomatous disease. Possible gallbladder wall thickening or small amount of fluid in the gallbladder fossa. The entire gallbladder is not visualized. If clinically indicated gallbladder ultrasound could be obtained for further evaluation. Transcribed By: DFN Dictated By: MARCOS GIBSON MD Electronically Authenticated By: MARCOS GIBSON MD Signed Date/Time: 01/15/182202 Patient: OBEY GONSALEZ MR#: [id number] : 1970 Acct:[id number] Age/Sex: 47 / F ADM Date: 01/15/18 Loc: ED Attending Dr: Ordering Physician: MORGAN HORNE MD Date of Service: 01/15/18 Procedure(s): US abdomen limited Accession Number(s): [id number] cc: MORGAN HORNE MD FINAL REPORT PROCEDURE: US ABDOMEN LIMITED TECHNIQUE: Real-time sonography was performed of the right upper quadrant with image documentation. CPT 50166 HISTORY: possible GB wall thickening, fever abd pain COMPARISON: Prior CT scan of the chest performed earlier today. FINDINGS: Gallbladder wall appears mildly thickened measuring 3.8 millimeters. There appears to be a small amount of fluid in the gallbladder fossa. Small echogenic foci are seen in the gallbladder which may reflect sludge. No formed gallstones are seen. Common bile duct is normal caliber measuring 3 millimeters. The intrahepatic ducts are not distended. Liver echogenicity appears normal. No ascites is seen. The right kidney showed no focal abnormality measuring 10.3 centimeters greatest length. Proximal abdominal aorta was unremarkable. Mid and distal abdominal aorta were not visualized. IMPRESSION: Mild gallbladder wall thickening and minimal fluid in the gallbladder fossa. Subtle echogenic foci are seen in the gallbladder which may reflect sludge. If clinically indicated nuclear medicine HIDA scan could be performed to exclude acute cholecystitis. Transcribed By: DEO Dictated By: MARCOS GIBSON MD Electronically Authenticated By: MARCOS GIBSON MD Signed Date/Time: 01/16/18 0022 - Medical Decision Making Patient is 47-year-old female who is presenting with fever. Patient states that she has some mild shortness of breath but also some mild abdominal pain but is unable to give much additional history. Patient's drug screen does show that she is positive for amphetamines and marijuana. No known whether the patient also is using needles and could possibly be bacteremic. Patient's shortness of breath was worked up and patient does not have a PE nor pneumonia as a source of the patient's possible infection. Patient's urinalysis shows positive nitrites but no WBCs were present. Patient was covered broad-spectrum antibiotics and will be admitted to the hospitalist service. Critical care attestation.: If time is entered above; I have spent that time in minutes in the direct care of this critically ill patient, excluding procedure time. ED Disposition Clinical Impression: Sepsis Qualifiers: Sepsis type: sepsis due to unspecified organism Qualified Code(s): A41.9 - Sepsis, unspecified organism Disposition: -01 TO HOME OR SELFCARE Is pt being admited?: Yes Does the pt Need Aspirin: No Condition: Stable Referrals: PRIMARY CARE, [Primary Care Provider] - 3-5 Days
[2018-01-16] MEDS ORDERED: ZOFRAN IV PRN (01:47)
[2018-01-16] MEDS ORDERED: K-DUR PO ONE (01:56)
[2018-01-16] MEDS ORDERED: NACL 0.9% 1000 ML 1,000 ML IV SCH (02:00)
[2018-01-16] MEDS: HEPARIN SUB-Q SCH ×3 (02:35→22:58)
--- NOTE | 2018-01-16 05:58 | History and Physical Report ---
CHIEF COMPLAINT: Fever. OTHER COMPLAINTS: Include weakness. HISTORY OF PRESENT ILLNESS: The patient is a 47-year-old female who complained about fever, generalized weakness going on for some days, also, the patient complained about shortness of breath and denied any cough, denied history of chest pain, and also complained about abdominal pain, denied any history of nausea or vomiting. Also, there was no history of headache, cough, or congestion, and the patient presented to the Emergency Room where she was seen, evaluated, and found to have presentation suspicious for sepsis, possible cholecystitis, and the patient was recommended for admission. PAST MEDICAL HISTORY: Hypertension and has not been taking medications for about three years. PAST SURGICAL HISTORY: Unremarkable. FAMILY HISTORY: Noncontributory. SOCIAL HISTORY: The patient said that she is a former cigarette smoker and also, the patient uses illicit drugs. MEDICATIONS: The patient is on [place] 10/325 mg one by mouth every 6 hours as needed for pain, lisinopril/HCTZ 20/25 mg 1 by mouth daily, and Ceftin 250 mg by mouth every 12 hours. ALLERGIES: There are no known drug allergies. REVIEW OF SYSTEMS: CONSTITUTIONAL: There is fever. There is no diaphoresis. No chills. HEENT: There is no headache or sore throat. CARDIOVASCULAR SYSTEM: There is no chest pain or orthopnea. RESPIRATORY SYSTEM: There is shortness of breath, but no cough. GASTROINTESTINAL SYSTEM: There is abdominal pain, but no nausea, no vomiting, no diarrhea or constipation. NEUROLOGICAL SYSTEM: There is generalized weakness with no numbness, no dizziness, no change in mental status. MUSCULOSKELETAL SYSTEM: There is no joint pain or swelling. DERMATOLOGICAL SYSTEM: There is no skin rash or itching. GENITOURINARY SYSTEM: There is no dysuria, hematuria or flank pain. Rest of system review is normal. PHYSICAL EXAMINATION: GENERAL: At the time of exam, the patient was found to be alert, oriented to person and place, not in acute distress. VITAL SIGNS: The patient's initial vital signs shows temperature of 101.8 degrees Fahrenheit, pulse of 136, respiration 26, blood pressure 147/83, O2 sat of 91% on room air. HEENT: Exam shows pupils to be equal, round, and reactive to light and accommodation. Extraocular muscles are intact. NECK: Supple with no JVD or carotid bruit. CARDIOVASCULAR SYSTEM: Showed normal first and second heart sounds with no gallops or murmur. RESPIRATORY SYSTEM: Show good air entry on both sides of the lung with no abnormal breath sounds. GASTROINTESTINAL SYSTEM: Show abdomen to be full, soft, and nontender with no organomegaly or rigidity. NEUROLOGICAL: Exam shows no deficits. MUSCULOSKELETAL SYSTEM: Show no joint swelling or tenderness. DERMATOLOGICAL SYSTEM: Show no skin rash. GENITOURINARY SYSTEM: Showing no costovertebral angle tenderness. PERTINENT IMAGING STUDIES: The patient had chest x-ray done that shows no acute cardiopulmonary lesion and also, the patient has CT angiogram of the chest done that shows no evidence of pulmonary embolus, but there is finding of arteriosclerosis in the coronary artery. There is also finding of borderline aneurysmal dilatation. There is ascending thoracic aortic with no distension seen. Also, the patient radiologist said that there is possible gallbladder wall thickening with small amount of fluid in the gallbladder fossa. I went ahead to say that the entire gallbladder is not visualized and if clinically indicated, gallbladder ultrasound should be done. The patient had abdominal ultrasound done that shows mild gallbladder wall thickening and minimal fluid in the gallbladder fossa with subtle congenic fossa seen in the gallbladder, which the radiologist said if clinically indicated, the nuclear medicine HIDA scan could be performed to exclude acute cholecystitis. LABORATORY RESULTS: Shows CBC with elevated white count of 15,300, normal hemoglobin, normal hematocrit with CBC differential showing elevated segmented neutrophils of 97%, with coagulation studies showing very high D-dimer of 2713. The patient's chemistry showed low sodium of 133, low potassium of 3.2, with low chloride of 96.8, and low CO2 of 21. The patient's urinalysis showed urine with positive nitrite, trace leucocyte esterase, normal urine, WBC, and no bacteria. The patient's urine drug screen is positive for marijuana and amphetamine. DIAGNOSES: 1. Sepsis. 2. Urinary tract infection. 3. Possible cholecystitis. 4. Polysubstance abuse. CARE OF PLAN: 1. The patient will be admitted to the telemetry. 2. The patient will be on intravenous normal saline at 150 mL/hour. 3. The patient will be on intravenous Zosyn 3.375 g every 8 hours for treatment of urinary tract infection. 4. The patient will be on Tylenol 650 mg every 4 days for fever. 5. The patient will have HIDA scan done in the morning of 01/16/2018, to diagnose cholecystitis. 6. The patient will be on 5000 units of heparin subcutaneous every 12 hours for deep venous thrombosis prophylaxis and will be on intravenous Dilaudid 0.5 mg every 6 hours needed for pain as well as intravenous Zofran 4 mg every 8 hours for nausea and vomiting. 7. The patient will be on basic metabolic panel done in the morning. 8. The patient's home medications will be started as shown in the reconciliation session and the patient will be one dose of potassium chloride 40 mEq by mouth. JOB# [id number] OCN/NTS
[2018-01-16] MEDS ORDERED: ZOSYN/NS 4.5GM/100ML 4.5 GM/100 ML VIAL IV SCH (06:00)
[2018-01-16] MEDS ORDERED: ZOSYN/NS 3.375GM/50ML 3.375 GM/50 ML BAG IV SCH (06:00)
--- NOTE | 2018-01-16 08:59 | Progress Note ---
Assessment and Plan Sepsis Acute cholecystitis UTI Hyponatremia Hypokalemia Alcohol abuse Plan Blood culture was positive for gram-positive cocci and clusters Continued IV vancomycin and Zosyn Offered urine culture Surgical consult Supplements electrolyte imbalance. Check magnesium level Alcohol cessation counseling done [facility] protocol DVT prophylaxis with heparin and SCDs Subjective Date of service: 01/16/18 Principal diagnosis: sepsis, UTI and cholecystitis Interval history: Patient seen and examined no new complaints. Denies any fever. No nausea no vomiting. Review laboratory and radiological data. Objective - Exam Narrative Exam: Constitutional: Well-nourished well-developed. In no distress Head: Normocephalic atraumatic Eyes: Pupils are equal round and reactive to light Nose: No enlarged turbinates, no septal deviation. Mouth: Moist mucous membranes. Neck: Supple no thyromegaly. No bruit. No JVD Heart: Regular rate and rhythm, S1-S2 abnormal. No rubs murmurs or gallop Lungs: Clear to auscultation bilaterally no rales or rhonchi Abdomen: Soft, nontender. Bowel sound are present. Extremities: No edema no cyanosis and no clubbing. Neuro: Alert oriented Oriented x3. No focal sensory or motor deficit. Skin: No rashes no hyperemic spots Psychiatry: Euthymic. Calm. - Constitutional Vitals: Vital Signs - 12hr 01/15/18 01/15/18 01/15/18 21:36 21:46 22:00 Temperature Pulse Rate 124 H 125 H Respiratory 26 H 25 H Rate Blood Pressure 130/73 130/73 125/79 O2 Sat by Pulse 96 92 94 Oximetry 01/15/18 01/15/18 01/15/18 22:16 22:30 22:46 Temperature Pulse Rate 125 H 124 H 124 H Respiratory 23 26 H 26 H Rate Blood Pressure 125/79 127/79 127/79 O2 Sat by Pulse 95 94 95 Oximetry 01/15/18 01/15/18 01/15/18 23:00 23:16 23:30 Temperature Pulse Rate Respiratory 19 26 H 28 H Rate Blood Pressure 126/72 126/72 133/82 O2 Sat by Pulse 97 93 95 Oximetry 01/15/18 01/15/18 01/16/18 23:40 23:56 00:00 Temperature Pulse Rate Respiratory 29 H 30 H Rate Blood Pressure 133/85 133/82 133/82 O2 Sat by Pulse Oximetry 01/16/18 01/16/18 01/16/18 00:16 00:30 00:46 Temperature Pulse Rate Respiratory 29 H 29 H 21 Rate Blood Pressure 133/82 133/82 133/82 O2 Sat by Pulse Oximetry 01/16/18 01/16/18 01/16/18 01:03 01:16 01:44 Temperature Pulse Rate 129 H Respiratory 16 32 H 37 H Rate Blood Pressure 133/82 133/82 133/82 O2 Sat by Pulse Oximetry 01/16/18 01/16/18 01/16/18 01:46 02:00 02:16 Temperature Pulse Rate 130 H 125 H Respiratory 29 H 29 H 29 H Rate Blood Pressure 133/82 133/82 133/82 O2 Sat by Pulse Oximetry 01/16/18 01/16/18 01/16/18 02:36 02:46 03:00 Temperature Pulse Rate Respiratory 13 22 26 H Rate Blood Pressure 133/82 133/82 133/82 O2 Sat by Pulse Oximetry 01/16/18 01/16/18 01/16/18 03:16 03:30 03:46 Temperature Pulse Rate 108 H 108 H Respiratory 25 H 25 H 25 H Rate Blood Pressure 133/82 129/75 129/75 O2 Sat by Pulse 94 96 Oximetry 01/16/18 01/16/18 01/16/18 04:00 04:16 04:30 Temperature Pulse Rate 106 H 108 H 106 H Respiratory 26 H 24 25 H Rate Blood Pressure 129/77 129/77 123/75 O2 Sat by Pulse 96 97 97 Oximetry 01/16/18 01/16/18 01/16/18 04:40 04:50 06:07 Temperature 98.5 F Pulse Rate 105 H 108 H 97 H Respiratory 24 21 16 Rate Blood Pressure 123/75 123/75 127/69 O2 Sat by Pulse 98 98 97 Oximetry 01/16/18 07:36 Temperature 98.5 F Pulse Rate 98 H Respiratory 16 Rate Blood Pressure 91/56 O2 Sat by Pulse 97 Oximetry - Labs CBC & Chem 7: 01/15/18 18:20 01/15/18 18:20 Labs: Abnormal lab results 01/15/18 01/15/18 01/15/18 Range/Units 18:20 18:20 18:20 WBC 15.3 H (4.5-11.0) K/mm3 MCH 26 L (28-32) pg RDW 17.2 H (13.2-15.2) % Seg Neuts % (Manual) 97.0 H (40.0-70.0) % Lymphocytes % (Manual) 2.0 L (13.4-35.0) % Seg Neutrophils # Man 14.8 H (1.8-7.7) K/mm3 Lymphocytes # (Manual) 0.3 L (1.2-5.4) K/mm3 D-Dimer 2713.80 H (0-234) ng/mlDDU Sodium 133 L (137-145) mmol/L Potassium 3.2 L (3.6-5.0) mmol/L Chloride 96.8 L (98-107) mmol/L Carbon Dioxide 21 L (22-30) mmol/L Albumin 3.8 L (3.9-5) g/dL
[2018-01-16] MEDS ORDERED: VANCOMYCIN PHARMACY TO DOSE IV SCH (10:00)
[2018-01-16] MEDS ORDERED: LISINOPRIL PO SCH (10:00)
[2018-01-16] MEDS ORDERED: HYDROCHLOROTHIAZIDE PO SCH (10:00)
[2018-01-16] MEDS ORDERED: VANCOMYCIN/NS 1 GM/250 ML 1 GM/250 ML BAG IV SCH (10:00)
[2018-01-16 10:06] LABS: BUN/Creatinine Ratio 14; Blood Urea Nitrogen 13 mg/dL (7-17); Calcium 8.3 mg/dL (8.4-10.2); Hemolysis Index 11
[2018-01-16] MEDS: NACL 0.9% 1000 ML 1,000 ML IV SCH ×2 (10:09→20:28)
[2018-01-16] MEDS: VANCOMYCIN/NS 1 GM/250 ML 1 GM/250 ML BAG IV SCH ×2 (10:10→21:41)
[2018-01-16] MEDS: HCTZ PO SCH (10:23)
[2018-01-16] MEDS: ZESTRIL PO SCH (10:23)
--- NOTE | 2018-01-16 14:42 | Nuclear Medicine Report ---
HEPATOBILIARY SCAN: History: sepsis, gallbladder disease. Following the injection of the radionuclide, serial scanning was obtained over the right upper quadrant. Initial imaging of the liver demonstrates a relatively normal activity pattern. Progressive concentration of the radionuclide in the bile ducts and gallbladder is identified within a normal time period. IMPRESSION: Normal biliary system.
[2018-01-16] MEDS: ZOSYN/NS 4.5GM/100ML 4.5 GM/100 ML VIAL IV SCH ×3 (14:46→21:36)
[2018-01-16] MEDS: KCL 10MEQ/100ML 10 MEQ/100 ML BAG IV SCH ×4 (14:47→18:19)
--- NOTE | 2018-01-16 16:33 | Consultation ---
History of Present Illness Consult date: 01/16/18 Chief complaint: 47 yo F with hx of - History of present illness History of present illness: 47 yo F with hx of HTN who presents with lower abdominal pain for the last 2 days. She states the pain is localized to the suprabubic and LLQ area and radiates to the right side of her flank. This feels likes burning and is a 8/10 -10/10 in severity. She admits to some nausea and subjective fevers. No vomiting. She is hungry and is asking for something to eat. She denies pain associated with food or pain located in the upper abdomen. She c/o severe burning upon urination. Ct A/P showed some fluid around the gallbladder and surgery is consulted to r/o acute cholecystitis . Past History Past Medical History: hypertension Past Surgical History: No surgical history Social history: denies: alcohol abuse Family history: no significant family history Medications and Allergies Allergies Allergy/AdvReac Type Severity Reaction Status Date / Time No Known Allergies Allergy Verified 09/02/13 06:55 Home Medications Medication Instructions Recorded Confirmed Last Taken Type HYDROcodone/APAP 10-325 [[place] 1 each PO Q6HR PRN #30 tablet 09/02/13 Unknown Rx 10-325 mg TAB] Lisinopril/Hydrochlorothiazide 1 each PO QDAY #30 tablet 09/02/13 Unknown Rx [Zestoretic 20-25 mg] Cefuroxime [Ceftin] 250 mg PO Q12H #14 tablet 10/28/17 Unknown Rx Active Meds: Active Medications Acetaminophen (Tylenol) 650 mg PO Q4H PRN PRN Reason: Fever >101 Heparin Sodium (Porcine) (Heparin) 5,000 unit SUB-Q Q12HR [facility] Last Admin: 01/16/18 13:48 Dose: 5,000 unit Hydrochlorothiazide (Hctz) 25 mg PO QDAY [facility] Last Admin: 01/16/18 10:23 Dose: Not Given Hydromorphone HCl (Dilaudid) 0.5 mg IV Q6H PRN PRN Reason: Pain, Moderate (4-6) Piperacillin Sod/Tazobactam Sod (Zosyn/Ns 4.5gm/100ml) 4.5 gm in 100 mls @ 200 mls/hr IV Q8HR [facility]; Protocol Last Admin: 01/16/18 14:46 Dose: 200 mls/hr Vancomycin HCl (Vancomycin/Ns 1 Gm/250 Ml) 1 gm in 250 mls @ 166.667 mls/hr IV Q12HR [facility] Last Admin: 01/16/18 10:10 Dose: 166.667 mls/hr Sodium Chloride (Nacl 0.9% 1000 Ml) 1,000 mls @ 125 mls/hr IV DIRECT [facility] Last Admin: 01/16/18 10:09 Dose: 125 mls/hr Lisinopril (Zestril) 20 mg PO QDAY [facility] Last Admin: 01/16/18 10:23 Dose: Not Given Ondansetron HCl (Zofran) 4 mg IV Q8H PRN PRN Reason: Nausea And Vomiting Vancomycin HCl (Vancomycin Pharmacy To Dose) 1 each IV PKCONSULT [facility] Review of Systems All systems: negative (10 point ROS performed and negative except for that listed in HPI) Exam Vital Signs Pulse Ox 90 01/15/18 17:49 Narrative exam: Gen: AAOx3. mild distress due to abdominal pain CV: S1, S2+ Resp: CTAB, no w/r/r Abd: soft, ND, + TTP suprapubic region. No r/r/g. No RUQ or epigastric pain Ext: no c/c/e Results - Labs 01/15/18 18:20 01/16/18 08:35 Abnormal lab results 01/15/18 01/15/18 01/15/18 Range/Units 18:20 18:20 18:20 WBC 15.3 H (4.5-11.0) K/mm3 MCH 26 L (28-32) pg RDW 17.2 H (13.2-15.2) % Seg Neuts % (Manual) 97.0 H (40.0-70.0) % Lymphocytes % (Manual) 2.0 L (13.4-35.0) % Seg Neutrophils # Man 14.8 H (1.8-7.7) K/mm3 Lymphocytes # (Manual) 0.3 L (1.2-5.4) K/mm3 D-Dimer 2713.80 H (0-234) ng/mlDDU Sodium 133 L (137-145) mmol/L Potassium 3.2 L (3.6-5.0) mmol/L Chloride 96.8 L (98-107) mmol/L Carbon Dioxide 21 L (22-30) mmol/L Calcium (8.4-10.2) mg/dL Albumin 3.8 L (3.9-5) g/dL 01/16/18 Range/Units 08:35 WBC (4.5-11.0) K/mm3 MCH (28-32) pg RDW (13.2-15.2) % Seg Neuts % (Manual) (40.0-70.0) % Lymphocytes % (Manual) (13.4-35.0) % Seg Neutrophils # Man (1.8-7.7) K/mm3 Lymphocytes # (Manual) (1.2-5.4) K/mm3 D-Dimer (0-234) ng/mlDDU Sodium 136 L (137-145) mmol/L Potassium (3.6-5.0) mmol/L Chloride (98-107) mmol/L Carbon Dioxide 18 L (22-30) mmol/L Calcium 8.3 L (8.4-10.2) mg/dL Albumin (3.9-5) g/dL Diabetes panel 01/15/18 01/16/18 Range/Units 18:20 08:35 Sodium 133 L 136 L (137-145) mmol/L Potassium 3.2 L 3.6 (3.6-5.0) mmol/L Chloride 96.8 L 99.4 (98-107) mmol/L Carbon Dioxide 21 L 18 L (22-30) mmol/L BUN 10 13 (7-17) mg/dL Creatinine 0.9 0.9 (0.7-1.2) mg/dL Glucose 92 93 (65-100) mg/dL Calcium 8.9 8.3 L (8.4-10.2) mg/dL AST 22 (5-40) units/L ALT 12 (7-56) units/L Alkaline Phosphatase 76 (35-129) units/L Total Protein 7.2 (6.3-8.2) g/dL Albumin 3.8 L (3.9-5) g/dL Calcium panel 01/15/18 01/16/18 Range/Units 18:20 08:35 Calcium 8.9 8.3 L (8.4-10.2) mg/dL Albumin 3.8 L (3.9-5) g/dL Pituitary panel 01/15/18 01/16/18 Range/Units 18:20 08:35 Sodium 133 L 136 L (137-145) mmol/L Potassium 3.2 L 3.6 (3.6-5.0) mmol/L Chloride 96.8 L 99.4 (98-107) mmol/L Carbon Dioxide 21 L 18 L (22-30) mmol/L BUN 10 13 (7-17) mg/dL Creatinine 0.9 0.9 (0.7-1.2) mg/dL Glucose 92 93 (65-100) mg/dL Calcium 8.9 8.3 L (8.4-10.2) mg/dL Adrenal panel 01/15/18 01/16/18 Range/Units 18:20 08:35 Sodium 133 L 136 L (137-145) mmol/L Potassium 3.2 L 3.6 (3.6-5.0) mmol/L Chloride 96.8 L 99.4 (98-107) mmol/L Carbon Dioxide 21 L 18 L (22-30) mmol/L BUN 10 13 (7-17) mg/dL Creatinine 0.9 0.9 (0.7-1.2) mg/dL Glucose 92 93 (65-100) mg/dL Calcium 8.9 8.3 L (8.4-10.2) mg/dL Total Bilirubin 0.50 (0.1-1.2) mg/dL AST 22 (5-40) units/L ALT 12 (7-56) units/L Alkaline Phosphatase 76 (35-129) units/L Total Protein 7.2 (6.3-8.2) g/dL Albumin 3.8 L (3.9-5) g/dL - Imaging CT scan - abdomen: report reviewed, image reviewed CT scan - pelvis: report reviewed, image reviewed Additional studies: HIDA scan Assessment and Plan 47 yo F with abdominal pain, lower abdomen 1. UTI 2. ?pericholecystic fluid r/o cholecystitis 3. sepsis Plan: HIDA and abdominal imaging reviewed - does not appear to be consistent with cholecystitis. HIDA scan showed normal filling of the gallbladder. Patient's symptoms are likely secondary to UTI and possibly pyelonephritis. Urine cx + G negative rods. 1. IV abx per 1' for UTI 2. start full liquids -> adv diet as tolerated 3. prn pain and nausea control 4. no acute surgical intervention at this time Thank you for this consultation, please call with questions or concerns
[2018-01-16] MEDS: DILAUDID IV PRN ×2 (16:38→21:45)
[2018-01-16] MEDS: TYLENOL PO PRN (20:22)
[2018-01-16] MEDS: HABITROL TD SCH (21:40)
[2018-01-17] MEDS: DILAUDID IV PRN ×2 (03:57→19:45)
[2018-01-17] MEDS: ZOSYN/NS 4.5GM/100ML 4.5 GM/100 ML VIAL IV SCH ×3 (06:34→22:27)
[2018-01-17 07:51] LABS: Hemoglobin 11.3 gm/dl (10.1-14.3); Mean Corpuscular HGB Conc 31 % (30-34); Mean Corpuscular Volume 80 fl (79-97); Platelet Count 154 K/mm3 (140-440); Red Blood Count 4.48 M/mm3 (3.65-5.03); Red Cell Distribution Width 17.5 % (13.2-15.2)
[2018-01-17 07:52] LABS: Mean Corpuscular Hemoglobin 25 pg (28-32)
[2018-01-17 08:04] LABS: Alanine Aminotransferase 47 units/L (7-56); Albumin 3.4 g/dL (3.9-5); BUN/Creatinine Ratio 19; Blood Urea Nitrogen 17 mg/dL (7-17); Calcium 8.3 mg/dL (8.4-10.2); Hemolysis Index 24
[2018-01-17] MEDS: NACL 0.9% 1000 ML 1,000 ML IV SCH (08:20)
[2018-01-17] MEDS: TYLENOL PO PRN (08:46)
[2018-01-17 08:52] LABS: Anisocytosis 1+; Band Neutrophils # (Manual) 1.8 K/mm3; Basophils % (Manual) 0 % (0.0-1.8); Eosinophils % (Manual) 0 % (0.0-4.3); Platelet Estimate Consistent w Auto; Total Cells Counted 100
[2018-01-17 08:53] LABS: Hypochromasia 1+
[2018-01-17] MEDS: VANCOMYCIN/NS 1 GM/250 ML 1 GM/250 ML BAG IV SCH ×2 (10:44→22:26)
[2018-01-17] MEDS: HEPARIN SUB-Q SCH ×2 (10:45→22:34)
[2018-01-17] MEDS: HCTZ PO SCH (10:45)
[2018-01-17] MEDS: ZESTRIL PO SCH (10:46)
[2018-01-17] MEDS: VALIUM PO PRN (10:59)
--- NOTE | 2018-01-17 11:41 | Progress Note ---
Assessment and Plan Assessment and plan: Patient is 47 yo woman with a history of hypertension, chronic back pains and migraines who pw abd pains/back pains * Ultrasound Abdomen limited IMPRESSION: Mild gallbladder wall thickening and minimal fluid in the gallbladder fossa. Subtle echogenic foci are seen in the gallbladder which may reflect sludge. If clinically indicated nuclear medicine HIDA scan could be performed to exclude acute cholecystitis. * CTA chest IMPRESSION: No evidence of pulmonary embolus. Atherosclerosis coronary arteries. Borderline aneurysmal dilatation ascending thoracic aorta. No dissection is seen. Prior granulomatous disease. Possible gallbladder wall thickening or small amount of fluid in the gallbladder fossa. The entire gallbladder is not visualized. If clinically indicated gallbladder ultrasound could be obtained for further evaluation. * HIDA scan normal * pCXR unremarkable -Sepsis due to acute complicated UTI r/o pyelonephritis: get CT scan (pt is extremely claustrophobic, so no MRI) without dye (already had CTA chest for elevated d-dimer) -UTI with sepsis: urine culture contaminated, continue iv abx -Thoracic aneurysms dilatation: consult Vascular to review film. -Acute hypoxic respiratory failure, she took o2 via nasal canula off briefy due to claustrophobia, sats was dropped to 89% so i immediately re-applied O2 -Acute cholecystitis ruled out per Gen. surgery. -DVT prophylaxis: sq heparin History Interval history: Patient was seen and examined. Follow-up on current diagnosis of back pains which is really severe. Overnight uneventful. Patient denies any chest pain, shortness breath, nausea/vomiting. Imaging, nursing note, chart, labs and old chart reviewed. Discussed with patient. Hospitalist Physical - Physical exam Narrative exam: GEN: illappearing, NAD, Awake, Alert, Orientated x 3 HEENT: NCAT, EOMI, PERRL, OP Clear NECK: supple, no adenopathy, no thyromegaly, no JVD CVS/HEART: Regular tachycardia, normal S1S2, pulses present bilaterally CHEST/LUNGS: CTA B, Symmetrical chest expansion, good air entry bilaterally GI/Abdomen: soft, NTND, good bowel sounds, no guarding or rebound /Bladder: +suprapubic tenderness, + CVA bilateral and paraspinal tenderness EXT/Skin: no c/c/e, no obvious rash MSK: FROM x 4 Neuro: CN 2-12 grossly intact, no new focal deficits Psych: +anxious - Constitutional Vitals: Temp Pulse Resp BP Pulse Ox 98.3 F 110 H 24 148/84 88 01/17/18 07:43 01/17/18 10:46 01/17/18 07:43 01/17/18 10:46 01/17/18 07:43 Results - Labs CBC & Chem 7: 01/17/18 06:33 01/17/18 06:33 Labs: Laboratory Last Values WBC 14.6 K/mm3 (4.5-11.0) H 01/17/18 06:33 RBC 4.48 M/mm3 (3.65-5.03) 01/17/18 06:33 Hgb 11.3 gm/dl (10.1-14.3) 01/17/18 06:33 Hct 36.0 % (30.3-42.9) 01/17/18 06:33 MCV 80 fl (79-97) 01/17/18 06:33 MCH 25 pg (28-32) L 01/17/18 06:33 MCHC 31 % (30-34) 01/17/18 06:33 RDW 17.5 % (13.2-15.2) H 01/17/18 06:33 Plt Count 154 K/mm3 (140-440) 01/17/18 06:33 Add Manual Diff Complete 01/17/18 06:33 Total Counted 100 01/17/18 06:33 Seg Neutrophils % Detail Technician 01/17/18 06:33 Seg Neuts % (Manual) 79.0 % (40.0-70.0) H 01/17/18 06:33 Band Neutrophils % 12.0 % 01/17/18 06:33 Lymphocytes % (Manual) 5.0 % (13.4-35.0) L 01/17/18 06:33 Reactive Lymphs % (Man) 0 % 01/17/18 06:33 Monocytes % (Manual) 4.0 % (0.0-7.3) 01/17/18 06:33 Eosinophils % (Manual) 0 % (0.0-4.3) 01/17/18 06:33 Basophils % (Manual) 0 % (0.0-1.8) 01/17/18 06:33 Metamyelocytes % 0 % 01/17/18 06:33 Myelocytes % 0 % 01/17/18 06:33 Promyelocytes % 0 % 01/17/18 06:33 Blast Cells % 0 % 01/17/18 06:33 Nucleated RBC % Not Reportable 01/17/18 06:33 Seg Neutrophils # Man 11.5 K/mm3 (1.8-7.7) H 01/17/18 06:33 Band Neutrophils # 1.8 K/mm3 01/17/18 06:33 Lymphocytes # (Manual) 0.7 K/mm3 (1.2-5.4) L 01/17/18 06:33 Abs React Lymphs (Man) 0.0 K/mm3 01/17/18 06:33 Monocytes # (Manual) 0.6 K/mm3 (0.0-0.8) 01/17/18 06:33 Eosinophils # (Manual) 0.0 K/mm3 (0.0-0.4) 01/17/18 06:33 Basophils # (Manual) 0.0 K/mm3 (0.0-0.1) 01/17/18 06:33 Metamyelocytes # 0.0 K/mm3 01/17/18 06:33 Myelocytes # 0.0 K/mm3 01/17/18 06:33 Promyelocytes # 0.0 K/mm3 01/17/18 06:33 Blast Cells # 0.0 K/mm3 01/17/18 06:33 WBC Morphology Not Reportable 01/17/18 06:33 Hypersegmented Neuts Not Reportable 01/17/18 06:33 Hyposegmented Neuts Not Reportable 01/17/18 06:33 Hypogranular Neuts Not Reportable 01/17/18 06:33 Smudge Cells Not Reportable 01/17/18 06:33 Toxic Granulation Not Reportable 01/17/18 06:33 Toxic Vacuolation Not Reportable 01/17/18 06:33 Dohle Bodies Not Reportable 01/17/18 06:33 Pelger-Huet Anomaly Not Reportable 01/17/18 06:33 Nicolas Rods Not Reportable 01/17/18 06:33 Platelet Estimate Consistent w auto 01/17/18 06:33 Clumped Platelets Not Reportable 01/17/18 06:33 Plt Clumps, EDTA Not Reportable 01/17/18 06:33 Large Platelets Not Reportable 01/17/18 06:33 Giant Platelets Not Reportable 01/17/18 06:33 Platelet Satelliting Not Reportable 01/17/18 06:33 Plt Morphology Comment Not Reportable 01/17/18 06:33 RBC Morphology Not Reportable 01/17/18 06:33 Dimorphic RBCs Not Reportable 01/17/18 06:33 Polychromasia Not Reportable 01/17/18 06:33 Hypochromasia 1+ 01/17/18 06:33 Poikilocytosis Not Reportable 01/17/18 06:33 Anisocytosis 1+ 01/17/18 06:33 Microcytosis Not Reportable 01/17/18 06:33 Macrocytosis Not Reportable 01/17/18 06:33 Spherocytes Not Reportable 01/17/18 06:33 Pappenheimer Bodies Not Reportable 01/17/18 06:33 Sickle Cells Not Reportable 01/17/18 06:33 Target Cells Not Reportable 01/17/18 06:33 Tear Drop Cells Not Reportable 01/17/18 06:33 Ovalocytes Not Reportable 01/17/18 06:33 Helmet Cells Not Reportable 01/17/18 06:33 [place] Bodies Not Reportable 01/17/18 06:33 [place] Rings Not Reportable 01/17/18 06:33 [place] Cells Not Reportable 01/17/18 06:33 Bite Cells Not Reportable 01/17/18 06:33 Crenated Cell Not Reportable 01/17/18 06:33 Elliptocytes Not Reportable 01/17/18 06:33 Acanthocytes (Spur) Not Reportable 01/17/18 06:33 Rouleaux Not Reportable 01/17/18 06:33 Hemoglobin C Crystals Not Reportable 01/17/18 06:33 Schistocytes Not Reportable 01/17/18 06:33 Malaria parasites Not Reportable 01/17/18 06:33 Ozzy Bodies Not Reportable 01/17/18 06:33 Hem Pathologist Commnt No 01/17/18 06:33 D-Dimer 2713.80 ng/mlDDU (0-234) H 01/15/18 18:20 Sodium 132 mmol/L (137-145) L 01/17/18 06:33 Potassium 4.6 mmol/L (3.6-5.0) D 01/17/18 06:33 Chloride 101.7 mmol/L (98-107) 01/17/18 06:33 Carbon Dioxide 18 mmol/L (22-30) L 01/17/18 06:33 Anion Gap 17 mmol/L 01/17/18 06:33 BUN 17 mg/dL (7-17) 01/17/18 06:33 Creatinine 0.9 mg/dL (0.7-1.2) 01/17/18 06:33 Estimated GFR > 60 ml/min 01/17/18 06:33 BUN/Creatinine Ratio 19 % 01/17/18 06:33 Glucose 102 mg/dL (65-100) H 01/17/18 06:33 Lactic Acid 1.50 mmol/L (0.7-2.0) 01/15/18 21:19 Calcium 8.3 mg/dL (8.4-10.2) L 01/17/18 06:33 Magnesium 2.10 mg/dL (1.7-2.3) 01/17/18 06:33 Total Bilirubin 0.30 mg/dL (0.1-1.2) 01/17/18 06:33 AST 248 units/L (5-40) H 01/17/18 06:33 ALT 47 units/L (7-56) 01/17/18 06:33 Alkaline Phosphatase 61 units/L (35-129) 01/17/18 06:33 Total Protein 6.9 g/dL (6.3-8.2) 01/17/18 06:33 Albumin 3.4 g/dL (3.9-5) L 01/17/18 06:33 Albumin/Globulin Ratio 1.0 % 01/17/18 06:33 Urine Color Yellow (Yellow) 01/15/18 18:45 Urine Turbidity Clear (Clear) 01/15/18 18:45 Urine pH 6.0 (5.0-7.0) 01/15/18 18:45 Ur Specific [place] 1.011 (1.003-1.030) 01/15/18 18:45 Urine Protein <15 mg/dl mg/dL (Negative) 01/15/18 18:45 Urine Glucose (UA) Neg mg/dL (Negative) 01/15/18 18:45 Urine Ketones Neg mg/dL (Negative) 01/15/18 18:45 Urine Blood Neg (Negative) 01/15/18 18:45 Urine Nitrite Pos (Negative) 01/15/18 18:45 Urine Bilirubin Neg (Negative) 01/15/18 18:45 Urine Urobilinogen < 2.0 mg/dL (<2.0) 01/15/18 18:45 Ur Leukocyte Esterase Tr (Negative) 01/15/18 18:45 Urine WBC (Auto) 1.0 /HPF (0.0-6.0) 01/15/18 18:45 Urine RBC (Auto) 1.0 /HPF (0.0-6.0) 01/15/18 18:45 Urine Mucus Few /HPF 01/15/18 18:45 Urine Opiates Screen Presumptive negative 01/15/18 18:45 Urine Methadone Screen Presumptive negative 01/15/18 18:45 Ur Barbiturates Screen Presumptive negative 01/15/18 18:45 Ur Phencyclidine Scrn Presumptive negative 01/15/18 18:45 Ur Amphetamines Screen Presumptive positive 01/15/18 18:45 U Benzodiazepines Scrn Presumptive negative 01/15/18 18:45 Urine Cocaine Screen Presumptive negative 01/15/18 18:45 U Marijuana (THC) Screen Presumptive positive 01/15/18 18:45 Drugs of Abuse Note Disclamer 01/15/18 18:45
--- NOTE | 2018-01-17 15:32 | Cat Scan Report ---
CT LUMBAR SPINE WITHOUT CONTRAST History: Paraspinal tenderness, pyelonephritis. Technique: Helical CT without contrast with sagittal and coronal reformatted images. Findings: The lumbar vertebral bodies, disc spaces, posterior elements, spinal canal and neural foramen are unremarkable. No evidence for fracture, bone lesion or subluxation. Impression: Normal CT of the lumbar spine.
--- NOTE | 2018-01-17 15:36 | Cat Scan Report ---
CT ABDOMEN PELVIS WITHOUT CONTRAST: HISTORY: Pyelonephritis. COMPARISON: none. TECHNIQUE: Helical CT in 1.25mm intervals without IV contrast. Sagittal and coronal reconstructions. FINDINGS: Lung bases: Small bilateral layering pleural effusions are identified. Heart size is normal. There are moderate aortic valve calcifications. Liver: Normal. Biliary system: There appears to be layering sludge or numerous tiny stones in the gallbladder. No inflammatory changes are appreciated. Pancreas: Normal. Spleen: Normal. Kidneys/ureters/bladder: The kidneys are normal size, contour and position. There are 2 stones in the mid right kidney measuring 3 mm and 4 mm respectively. No evidence for cystic disease or hydronephrosis. Adrenal glands: Normal. Aorta: Normal. Intestines: Unremarkable given no oral contrast was administered. Appendix: Not confidently identified. Correlate with surgical history. Pelvic viscera: Normal. Ascites: Trace pelvic ascites. Adenopathy: None. Musculoskeletal: Normal. IMPRESSION: Small bilateral pleural effusions. Cholelithiasis. Right renal stones, nonobstructing. Trace pelvic ascites.
[2018-01-17] MEDS: NORCO 10/325 PO PRN (22:51)
[2018-01-18] MEDS: HABITROL TD SCH ×2 (00:37→10:00)
[2018-01-18] MEDS: NORCO 10/325 PO PRN ×3 (05:10→22:18)
[2018-01-18] MEDS: ZOSYN/NS 4.5GM/100ML 4.5 GM/100 ML VIAL IV SCH ×3 (05:15→22:21)
[2018-01-18 08:04] LABS: Hemoglobin 8.7 gm/dl (10.1-14.3); Mean Corpuscular HGB Conc 32 % (30-34); Mean Corpuscular Volume 80 fl (79-97); Platelet Count 123 K/mm3 (140-440); Red Blood Count 3.38 M/mm3 (3.65-5.03); Red Cell Distribution Width 17.5 % (13.2-15.2)
[2018-01-18 08:07] LABS: Mean Corpuscular Hemoglobin 26 pg (28-32)
[2018-01-18 08:25] LABS: Alanine Aminotransferase 30 units/L (7-56); Albumin 2.7 g/dL (3.9-5); BUN/Creatinine Ratio 20; Blood Urea Nitrogen 16 mg/dL (7-17); Calcium 7.9 mg/dL (8.4-10.2); Hemolysis Index 0
[2018-01-18] MEDS: HEPARIN SUB-Q SCH ×2 (10:06→22:17)
[2018-01-18] MEDS: HCTZ PO SCH (10:06)
[2018-01-18] MEDS: ZESTRIL PO SCH (10:06)
[2018-01-18] MEDS: VALIUM PO PRN ×2 (10:07→22:18)
[2018-01-18] MEDS: VANCOMYCIN/NS 1 GM/250 ML 1 GM/250 ML BAG IV SCH ×2 (10:07→22:21)
--- NOTE | 2018-01-18 11:35 | Progress Note ---
Assessment and Plan Assessment and plan: Patient is 47 yo woman with a history of hypertension, chronic back pains and migraines who pw abd pains/back pains * Ultrasound Abdomen limited IMPRESSION: Mild gallbladder wall thickening and minimal fluid in the gallbladder fossa. Subtle echogenic foci are seen in the gallbladder which may reflect sludge. If clinically indicated nuclear medicine HIDA scan could be performed to exclude acute cholecystitis. * CTA chest IMPRESSION: No evidence of pulmonary embolus. Atherosclerosis coronary arteries. Borderline aneurysmal dilatation ascending thoracic aorta. No dissection is seen. Prior granulomatous disease. Possible gallbladder wall thickening or small amount of fluid in the gallbladder fossa. The entire gallbladder is not visualized. If clinically indicated gallbladder ultrasound could be obtained for further evaluation. * HIDA scan normal * pCXR unremarkable -Sepsis due to acute complicated UTI r/o pyelonephritis: continue IV abx -UTI with sepsis: urine culture contaminated, continue iv abx -Thoracic aneurysms dilatation: consult Vascular to review film. -Acute hypoxic respiratory failure, she took o2 via nasal canula off briefly due to claustrophobia, sats was dropping to 89% so i immediately re-applied O2, sat went up to 91% -Acute cholecystitis ruled out per Gen. surgery. -Cholelithiasis, surgery evaluated Gallbladder -DVT prophylaxis: sq heparin -Staph aureus bacteremia: consult ID and get 2D ECHO to start, final report still not back yet. * CT abd/pelvis wo contrast IMPRESSION: Small bilateral pleural effusions. Cholelithiasis. Right renal stones, nonobstructing. Trace pelvic ascites. * CT lumbar spine reported as normal Awaiting ECHO, follow up blood culture History Interval history: Patient was seen and examined. Follow-up on current diagnosis of left side pains which are still present. Overnight uneventful. Patient denies any chest pain, shortness breath, nausea/vomiting. Imaging, nursing note, chart, labs and old chart reviewed. Discussed with patient. Hospitalist Physical - Physical exam Narrative exam: GEN: illappearing, NAD, Awake, Alert, Orientated x 3 HEENT: NCAT, EOMI, PERRL, OP Clear NECK: supple, no adenopathy, no thyromegaly, no JVD CVS/HEART: Regular tachycardia, normal S1S2, pulses present bilaterally CHEST/LUNGS: CTA B, Symmetrical chest expansion, good air entry bilaterally GI/Abdomen: soft, NTND, good bowel sounds, no guarding or rebound /Bladder: +suprapubic tenderness, + CVA bilateral and paraspinal tenderness EXT/Skin: no c/c/e, no obvious rash MSK: FROM x 4 Neuro: CN 2-12 grossly intact, no new focal deficits Psych: +anxious - Constitutional Vitals: Temp Pulse Resp BP Pulse Ox 98.6 F 103 H 19 102/72 91 01/18/18 06:24 01/18/18 06:24 01/18/18 06:24 01/18/18 06:24 01/18/18 06:24 Results - Labs CBC & Chem 7: 01/18/18 07:00 01/18/18 07:00 Labs: Laboratory Last Values WBC 11.5 K/mm3 (4.5-11.0) H 01/18/18 07:00 RBC 3.38 M/mm3 (3.65-5.03) L 01/18/18 07:00 Hgb 8.7 gm/dl (10.1-14.3) L 01/18/18 07:00 Hct 27.0 % (30.3-42.9) L D 01/18/18 07:00 MCV 80 fl (79-97) 01/18/18 07:00 MCH 26 pg (28-32) L 01/18/18 07:00 MCHC 32 % (30-34) 01/18/18 07:00 RDW 17.5 % (13.2-15.2) H 01/18/18 07:00 Plt Count 123 K/mm3 (140-440) L 01/18/18 07:00 Add Manual Diff Complete 01/17/18 06:33 Total Counted 100 01/17/18 06:33 Seg Neutrophils % Therapeutic Specialist 01/17/18 06:33 Seg Neuts % (Manual) 79.0 % (40.0-70.0) H 01/17/18 06:33 Band Neutrophils % 12.0 % 01/17/18 06:33 Lymphocytes % (Manual) 5.0 % (13.4-35.0) L 01/17/18 06:33 Reactive Lymphs % (Man) 0 % 01/17/18 06:33 Monocytes % (Manual) 4.0 % (0.0-7.3) 01/17/18 06:33 Eosinophils % (Manual) 0 % (0.0-4.3) 01/17/18 06:33 Basophils % (Manual) 0 % (0.0-1.8) 01/17/18 06:33 Metamyelocytes % 0 % 01/17/18 06:33 Myelocytes % 0 % 01/17/18 06:33 Promyelocytes % 0 % 01/17/18 06:33 Blast Cells % 0 % 01/17/18 06:33 Nucleated RBC % Not Reportable 01/17/18 06:33 Seg Neutrophils # Man 11.5 K/mm3 (1.8-7.7) H 01/17/18 06:33 Band Neutrophils # 1.8 K/mm3 01/17/18 06:33 Lymphocytes # (Manual) 0.7 K/mm3 (1.2-5.4) L 01/17/18 06:33 Abs React Lymphs (Man) 0.0 K/mm3 01/17/18 06:33 Monocytes # (Manual) 0.6 K/mm3 (0.0-0.8) 01/17/18 06:33 Eosinophils # (Manual) 0.0 K/mm3 (0.0-0.4) 01/17/18 06:33 Basophils # (Manual) 0.0 K/mm3 (0.0-0.1) 01/17/18 06:33 Metamyelocytes # 0.0 K/mm3 01/17/18 06:33 Myelocytes # 0.0 K/mm3 01/17/18 06:33 Promyelocytes # 0.0 K/mm3 01/17/18 06:33 Blast Cells # 0.0 K/mm3 01/17/18 06:33 WBC Morphology Not Reportable 01/17/18 06:33 Hypersegmented Neuts Not Reportable 01/17/18 06:33 Hyposegmented Neuts Not Reportable 01/17/18 06:33 Hypogranular Neuts Not Reportable 01/17/18 06:33 Smudge Cells Not Reportable 01/17/18 06:33 Toxic Granulation Not Reportable 01/17/18 06:33 Toxic Vacuolation Not Reportable 01/17/18 06:33 Dohle Bodies Not Reportable 01/17/18 06:33 Pelger-Huet Anomaly Not Reportable 01/17/18 06:33 Nicolas Rods Not Reportable 01/17/18 06:33 Platelet Estimate Consistent w auto 01/17/18 06:33 Clumped Platelets Not Reportable 01/17/18 06:33 Plt Clumps, EDTA Not Reportable 01/17/18 06:33 Large Platelets Not Reportable 01/17/18 06:33 Giant Platelets Not Reportable 01/17/18 06:33 Platelet Satelliting Not Reportable 01/17/18 06:33 Plt Morphology Comment Not Reportable 01/17/18 06:33 RBC Morphology Not Reportable 01/17/18 06:33 Dimorphic RBCs Not Reportable 01/17/18 06:33 Polychromasia Not Reportable 01/17/18 06:33 Hypochromasia 1+ 01/17/18 06:33 Poikilocytosis Not Reportable 01/17/18 06:33 Anisocytosis 1+ 01/17/18 06:33 Microcytosis Not Reportable 01/17/18 06:33 Macrocytosis Not Reportable 01/17/18 06:33 Spherocytes Not Reportable 01/17/18 06:33 Pappenheimer Bodies Not Reportable 01/17/18 06:33 Sickle Cells Not Reportable 01/17/18 06:33 Target Cells Not Reportable 01/17/18 06:33 Tear Drop Cells Not Reportable 01/17/18 06:33 Ovalocytes Not Reportable 01/17/18 06:33 Helmet Cells Not Reportable 01/17/18 06:33 [place] Bodies Not Reportable 01/17/18 06:33 [place] Rings Not Reportable 01/17/18 06:33 [place] Cells Not Reportable 01/17/18 06:33 Bite Cells Not Reportable 01/17/18 06:33 Crenated Cell Not Reportable 01/17/18 06:33 Elliptocytes Not Reportable 01/17/18 06:33 Acanthocytes (Spur) Not Reportable 01/17/18 06:33 Rouleaux Not Reportable 01/17/18 06:33 Hemoglobin C Crystals Not Reportable 01/17/18 06:33 Schistocytes Not Reportable 01/17/18 06:33 Malaria parasites Not Reportable 01/17/18 06:33 Ozzy Bodies Not Reportable 01/17/18 06:33 Hem Pathologist Commnt No 01/17/18 06:33 D-Dimer 2713.80 ng/mlDDU (0-234) H 01/15/18 18:20 Sodium 136 mmol/L (137-145) L 01/18/18 07:00 Potassium 3.9 mmol/L (3.6-5.0) 01/18/18 07:00 Chloride 103.0 mmol/L (98-107) 01/18/18 07:00 Carbon Dioxide 19 mmol/L (22-30) L 01/18/18 07:00 Anion Gap 18 mmol/L 01/18/18 07:00 BUN 16 mg/dL (7-17) 01/18/18 07:00 Creatinine 0.8 mg/dL (0.7-1.2) 01/18/18 07:00 Estimated GFR > 60 ml/min 01/18/18 07:00 BUN/Creatinine Ratio 20 % 01/18/18 07:00 Glucose 98 mg/dL (65-100) 01/18/18 07:00 Lactic Acid 1.50 mmol/L (0.7-2.0) 01/15/18 21:19 Calcium 7.9 mg/dL (8.4-10.2) L 01/18/18 07:00 Magnesium 2.10 mg/dL (1.7-2.3) 01/17/18 06:33 Total Bilirubin 0.40 mg/dL (0.1-1.2) 01/18/18 07:00 AST 87 units/L (5-40) H 01/18/18 07:00 ALT 30 units/L (7-56) 01/18/18 07:00 Alkaline Phosphatase 52 units/L (35-129) 01/18/18 07:00 Total Protein 5.4 g/dL (6.3-8.2) L D 01/18/18 07:00 Albumin 2.7 g/dL (3.9-5) L 01/18/18 07:00 Albumin/Globulin Ratio 1.0 % 01/18/18 07:00 Urine Color Yellow (Yellow) 01/15/18 18:45 Urine Turbidity Clear (Clear) 01/15/18 18:45 Urine pH 6.0 (5.0-7.0) 01/15/18 18:45 Ur Specific [place] 1.011 (1.003-1.030) 01/15/18 18:45 Urine Protein <15 mg/dl mg/dL (Negative) 01/15/18 18:45 Urine Glucose (UA) Neg mg/dL (Negative) 01/15/18 18:45 Urine Ketones Neg mg/dL (Negative) 01/15/18 18:45 Urine Blood Neg (Negative) 01/15/18 18:45 Urine Nitrite Pos (Negative) 01/15/18 18:45 Urine Bilirubin Neg (Negative) 01/15/18 18:45 Urine Urobilinogen < 2.0 mg/dL (<2.0) 01/15/18 18:45 Ur Leukocyte Esterase Tr (Negative) 01/15/18 18:45 Urine WBC (Auto) 1.0 /HPF (0.0-6.0) 01/15/18 18:45 Urine RBC (Auto) 1.0 /HPF (0.0-6.0) 01/15/18 18:45 Urine Mucus Few /HPF 01/15/18 18:45 Urine Opiates Screen Presumptive negative 01/15/18 18:45 Urine Methadone Screen Presumptive negative 01/15/18 18:45 Ur Barbiturates Screen Presumptive negative 01/15/18 18:45 Ur Phencyclidine Scrn Presumptive negative 01/15/18 18:45 Ur Amphetamines Screen Presumptive positive 01/15/18 18:45 U Benzodiazepines Scrn Presumptive negative 01/15/18 18:45 Urine Cocaine Screen Presumptive negative 01/15/18 18:45 U Marijuana (THC) Screen Presumptive positive 01/15/18 18:45 Drugs of Abuse Note Disclamer 01/15/18 18:45
[2018-01-18] MEDS: NACL 0.9% 1000 ML 1,000 ML IV SCH (20:57)
[2018-01-19] MEDS: DILAUDID IV PRN ×2 (05:48→23:34)
[2018-01-19] MEDS: VALIUM PO PRN ×2 (05:49→18:23)
[2018-01-19] MEDS: ZOSYN/NS 4.5GM/100ML 4.5 GM/100 ML VIAL IV SCH ×2 (05:52→16:06)
--- NOTE | 2018-01-19 08:44 | Consultation ---
History of Present Illness - Reason for Consult Consult date: 01/16/18 ascending aortic aneurysm Requesting physician: EMANUEL ROME - History of Present Illness 47-year-old female admitted to the hospital with abdominal pain and generalized fatigue. The patient was evaluated for pulmonary embolism and a CT scan revealed borderline enlargement of the ascending aorta. The patient does not have complaints of chest pain or back pain. Past History Past Medical History: hypertension Past Surgical History: No surgical history Social history: denies: alcohol abuse Family history: no significant family history Medications and Allergies Allergies Allergy/AdvReac Type Severity Reaction Status Date / Time No Known Allergies Allergy Verified 09/02/13 06:55 Home Medications Medication Instructions Recorded Confirmed Last Taken Type No Known Home Medications [No 01/17/18 01/17/18 Unknown History Reported Home Medications] Active Meds: Active Medications Acetaminophen (Tylenol) 650 mg PO Q4H PRN PRN Reason: Fever >101 Last Admin: 01/17/18 08:46 Dose: 650 mg Acetaminophen/Hydrocodone Bitart ([place] 10/325) 1 each PO Q4H PRN PRN Reason: Pain, Moderate (4-6) Last Admin: 01/18/18 22:18 Dose: 1 each Diazepam (Valium) 5 mg PO Q8H PRN PRN Reason: Anxiety Last Admin: 01/19/18 05:49 Dose: 5 mg Hydrochlorothiazide (Hctz) 25 mg PO QDAY SUSAN Last Admin: 01/18/18 10:06 Dose: 25 mg Hydromorphone HCl (Dilaudid) 0.5 mg IV Q6H PRN PRN Reason: Pain , Severe (7-10) Last Admin: 01/19/18 05:48 Dose: 0.5 mg Piperacillin Sod/Tazobactam Sod (Zosyn/Ns 4.5gm/100ml) 4.5 gm in 100 mls @ 200 mls/hr IV Q8HR SUSAN; Protocol Last Admin: 01/19/18 05:52 Dose: 200 mls/hr Vancomycin HCl (Vancomycin/Ns 1 Gm/250 Ml) 1 gm in 250 mls @ 166.667 mls/hr IV Q12HR SUSAN Last Admin: 01/18/18 22:21 Dose: 166.667 mls/hr Sodium Chloride (Nacl 0.9% 1000 Ml) 1,000 mls @ 125 mls/hr IV DIRECT [facility] Last Admin: 01/18/18 20:57 Dose: 125 mls/hr Lisinopril (Zestril) 20 mg PO QDAY [facility] Last Admin: 01/18/18 10:06 Dose: 20 mg Nicotine (Habitrol) 21 mg TD Q24H [facility] Last Admin: 01/18/18 00:37 Dose: Not Given Ondansetron HCl (Zofran) 4 mg IV Q8H PRN PRN Reason: Nausea And Vomiting Last Admin: 01/17/18 08:48 Dose: 4 mg Vancomycin HCl (Vancomycin Pharmacy To Dose) 1 each IV PKCONSULT [facility] Exam - Constitutional Vitals: Temp Pulse Resp BP Pulse Ox 98.2 F 108 H 16 159/87 95 01/19/18 05:19 01/19/18 05:19 01/19/18 05:19 01/19/18 05:19 01/19/18 05:19 General appearance: Present: mild distress - EENT Eyes: Present: PERRL - Neck Neck: Present: supple - Respiratory Respiratory effort: normal - Cardiovascular Rhythm: regular - Extremities Extremities: no ischemia Results - Labs CBC & Chem 7: 01/18/18 07:00 01/18/18 07:00 Assessment and Plan 1. I have reviewed the CT scan of the chest, the ascending aorta is within upper limits of normal, there is no evidence of aneurysmal dilatation, there is no mural thrombus or dissection. The patient does not have clinical symptoms are indicative of symptomatic aneurysmal disease. 2. Consider referral to CT surgery if there is any further concern. - Patient Problems (1) Aorta disorder Current Visit: Yes Status: Acute
--- NOTE | 2018-01-19 09:17 | Progress Note ---
Assessment and Plan Assessment and plan: Patient is 47 yo woman with a history of hypertension, chronic back pains and migraines who pw abd pains/back pains * Ultrasound Abdomen limited IMPRESSION: Mild gallbladder wall thickening and minimal fluid in the gallbladder fossa. Subtle echogenic foci are seen in the gallbladder which may reflect sludge. If clinically indicated nuclear medicine HIDA scan could be performed to exclude acute cholecystitis. * CTA chest IMPRESSION: No evidence of pulmonary embolus. Atherosclerosis coronary arteries. Borderline aneurysmal dilatation ascending thoracic aorta. No dissection is seen. Prior granulomatous disease. Possible gallbladder wall thickening or small amount of fluid in the gallbladder fossa. The entire gallbladder is not visualized. If clinically indicated gallbladder ultrasound could be obtained for further evaluation. * HIDA scan normal * pCXR unremarkable -Sepsis due to acute complicated UTI r/o pyelonephritis: continue IV abx -UTI with sepsis: urine culture contaminated, continue iv abx -Thoracic aneurysms dilatation ruled out: consult Vascular to review film==> d/ w Dr. Pretty, refer to his note. -Acute hypoxic respiratory failure, she took o2 via nasal canula off briefly due to claustrophobia, sats was dropping to 89% so i immediately re-applied O2, sat went up to 91% -Acute cholecystitis ruled out per Gen. surgery. -Cholelithiasis, surgery evaluated Gallbladder -DVT prophylaxis: sq heparin -Staph aureus bacteremia: consult ID and get 2D ECHO to start, final report still not back yet. * CT abd/pelvis wo contrast IMPRESSION: Small bilateral pleural effusions. Cholelithiasis. Right renal stones, nonobstructing. Trace pelvic ascites. * CT lumbar spine reported as normal Awaiting ECHO===>2D ECHO reported 1. low flow, low gradient aortic stenosis 2. moderate AR 3. suggest dobutamine stress echo if clinically indicated. EF is diminshed at 35%. Aortic valve area is 1.2 square cm follow up blood culture History Interval history: Patient was seen and examined. Follow-up on current diagnosis of left side pains which are still present. Overnight uneventful. Patient denies any chest pain, shortness breath, nausea/vomiting. Imaging, nursing note, chart, labs and old chart reviewed. Discussed with patient. Hospitalist Physical - Physical exam Narrative exam: GEN: illappearing, NAD, Awake, Alert, Orientated x 3 HEENT: NCAT, EOMI, PERRL, OP Clear NECK: supple, no adenopathy, no thyromegaly, no JVD CVS/HEART: Regular tachycardia, normal S1S2, pulses present bilaterally CHEST/LUNGS: CTA B, Symmetrical chest expansion, good air entry bilaterally GI/Abdomen: soft, NTND, good bowel sounds, no guarding or rebound /Bladder: +suprapubic tenderness, + CVA bilateral and paraspinal tenderness EXT/Skin: no c/c/e, no obvious rash MSK: FROM x 4 Neuro: CN 2-12 grossly intact, no new focal deficits Psych: +anxious but improved with valium - Constitutional Vitals: Temp Pulse Resp BP Pulse Ox 98.2 F 108 H 16 159/87 95 01/19/18 05:19 01/19/18 05:19 01/19/18 05:19 01/19/18 05:19 01/19/18 05:19 Results - Labs CBC & Chem 7: 01/18/18 07:00 01/18/18 07:00 Labs: Laboratory Last Values WBC 11.5 K/mm3 (4.5-11.0) H 01/18/18 07:00 RBC 3.38 M/mm3 (3.65-5.03) L 01/18/18 07:00 Hgb 8.7 gm/dl (10.1-14.3) L 01/18/18 07:00 Hct 27.0 % (30.3-42.9) L D 01/18/18 07:00 MCV 80 fl (79-97) 01/18/18 07:00 MCH 26 pg (28-32) L 01/18/18 07:00 MCHC 32 % (30-34) 01/18/18 07:00 RDW 17.5 % (13.2-15.2) H 01/18/18 07:00 Plt Count 123 K/mm3 (140-440) L 01/18/18 07:00 Add Manual Diff Complete 01/17/18 06:33 Total Counted 100 01/17/18 06:33 Seg Neutrophils % [employer] 01/17/18 06:33 Seg Neuts % (Manual) 79.0 % (40.0-70.0) H 01/17/18 06:33 Band Neutrophils % 12.0 % 01/17/18 06:33 Lymphocytes % (Manual) 5.0 % (13.4-35.0) L 01/17/18 06:33 Reactive Lymphs % (Man) 0 % 01/17/18 06:33 Monocytes % (Manual) 4.0 % (0.0-7.3) 01/17/18 06:33 Eosinophils % (Manual) 0 % (0.0-4.3) 01/17/18 06:33 Basophils % (Manual) 0 % (0.0-1.8) 01/17/18 06:33 Metamyelocytes % 0 % 01/17/18 06:33 Myelocytes % 0 % 01/17/18 06:33 Promyelocytes % 0 % 01/17/18 06:33 Blast Cells % 0 % 01/17/18 06:33 Nucleated RBC % Not Reportable 01/17/18 06:33 Seg Neutrophils # Man 11.5 K/mm3 (1.8-7.7) H 01/17/18 06:33 Band Neutrophils # 1.8 K/mm3 01/17/18 06:33 Lymphocytes # (Manual) 0.7 K/mm3 (1.2-5.4) L 01/17/18 06:33 Abs React Lymphs (Man) 0.0 K/mm3 01/17/18 06:33 Monocytes # (Manual) 0.6 K/mm3 (0.0-0.8) 01/17/18 06:33 Eosinophils # (Manual) 0.0 K/mm3 (0.0-0.4) 01/17/18 06:33 Basophils # (Manual) 0.0 K/mm3 (0.0-0.1) 01/17/18 06:33 Metamyelocytes # 0.0 K/mm3 01/17/18 06:33 Myelocytes # 0.0 K/mm3 01/17/18 06:33 Promyelocytes # 0.0 K/mm3 01/17/18 06:33 Blast Cells # 0.0 K/mm3 01/17/18 06:33 WBC Morphology Not Reportable 01/17/18 06:33 Hypersegmented Neuts Not Reportable 01/17/18 06:33 Hyposegmented Neuts Not Reportable 01/17/18 06:33 Hypogranular Neuts Not Reportable 01/17/18 06:33 Smudge Cells Not Reportable 01/17/18 06:33 Toxic Granulation Not Reportable 01/17/18 06:33 Toxic Vacuolation Not Reportable 01/17/18 06:33 Dohle Bodies Not Reportable 01/17/18 06:33 Pelger-Huet Anomaly Not Reportable 01/17/18 06:33 Nicolas Rods Not Reportable 01/17/18 06:33 Platelet Estimate Consistent w auto 01/17/18 06:33 Clumped Platelets Not Reportable 01/17/18 06:33 Plt Clumps, EDTA Not Reportable 01/17/18 06:33 Large Platelets Not Reportable 01/17/18 06:33 Giant Platelets Not Reportable 01/17/18 06:33 Platelet Satelliting Not Reportable 01/17/18 06:33 Plt Morphology Comment Not Reportable 01/17/18 06:33 RBC Morphology Not Reportable 01/17/18 06:33 Dimorphic RBCs Not Reportable 01/17/18 06:33 Polychromasia Not Reportable 01/17/18 06:33 Hypochromasia 1+ 01/17/18 06:33 Poikilocytosis Not Reportable 01/17/18 06:33 Anisocytosis 1+ 01/17/18 06:33 Microcytosis Not Reportable 01/17/18 06:33 Macrocytosis Not Reportable 01/17/18 06:33 Spherocytes Not Reportable 01/17/18 06:33 Pappenheimer Bodies Not Reportable 01/17/18 06:33 Sickle Cells Not Reportable 01/17/18 06:33 Target Cells Not Reportable 01/17/18 06:33 Tear Drop Cells Not Reportable 01/17/18 06:33 Ovalocytes Not Reportable 01/17/18 06:33 Helmet Cells Not Reportable 01/17/18 06:33 Burnette-[place] Bodies Not Reportable 01/17/18 06:33 Olga Rings Not Reportable 01/17/18 06:33 Deloit Cells Not Reportable 01/17/18 06:33 Bite Cells Not Reportable 01/17/18 06:33 Crenated Cell Not Reportable 01/17/18 06:33 Elliptocytes Not Reportable 01/17/18 06:33 Acanthocytes (Spur) Not Reportable 01/17/18 06:33 Rouleaux Not Reportable 01/17/18 06:33 Hemoglobin C Crystals Not Reportable 01/17/18 06:33 Schistocytes Not Reportable 01/17/18 06:33 Malaria parasites Not Reportable 01/17/18 06:33 Ozzy Bodies Not Reportable 01/17/18 06:33 Hem Pathologist Commnt No 01/17/18 06:33 D-Dimer 2713.80 ng/mlDDU (0-234) H 01/15/18 18:20 Sodium 136 mmol/L (137-145) L 01/18/18 07:00 Potassium 3.9 mmol/L (3.6-5.0) 01/18/18 07:00 Chloride 103.0 mmol/L (98-107) 01/18/18 07:00 Carbon Dioxide 19 mmol/L (22-30) L 01/18/18 07:00 Anion Gap 18 mmol/L 01/18/18 07:00 BUN 16 mg/dL (7-17) 01/18/18 07:00 Creatinine 0.8 mg/dL (0.7-1.2) 01/18/18 07:00 Estimated GFR > 60 ml/min 01/18/18 07:00 BUN/Creatinine Ratio 20 % 01/18/18 07:00 Glucose 98 mg/dL (65-100) 01/18/18 07:00 Lactic Acid 1.50 mmol/L (0.7-2.0) 01/15/18 21:19 Calcium 7.9 mg/dL (8.4-10.2) L 01/18/18 07:00 Magnesium 2.10 mg/dL (1.7-2.3) 01/17/18 06:33 Total Bilirubin 0.40 mg/dL (0.1-1.2) 01/18/18 07:00 AST 87 units/L (5-40) H 01/18/18 07:00 ALT 30 units/L (7-56) 01/18/18 07:00 Alkaline Phosphatase 52 units/L (35-129) 01/18/18 07:00 Total Protein 5.4 g/dL (6.3-8.2) L D 01/18/18 07:00 Albumin 2.7 g/dL (3.9-5) L 01/18/18 07:00 Albumin/Globulin Ratio 1.0 % 01/18/18 07:00 Urine Color Yellow (Yellow) 01/15/18 18:45 Urine Turbidity Clear (Clear) 01/15/18 18:45 Urine pH 6.0 (5.0-7.0) 01/15/18 18:45 Ur Specific [place] 1.011 (1.003-1.030) 01/15/18 18:45 Urine Protein <15 mg/dl mg/dL (Negative) 01/15/18 18:45 Urine Glucose (UA) Neg mg/dL (Negative) 01/15/18 18:45 Urine Ketones Neg mg/dL (Negative) 01/15/18 18:45 Urine Blood Neg (Negative) 01/15/18 18:45 Urine Nitrite Pos (Negative) 01/15/18 18:45 Urine Bilirubin Neg (Negative) 01/15/18 18:45 Urine Urobilinogen < 2.0 mg/dL (<2.0) 01/15/18 18:45 Ur Leukocyte Esterase Tr (Negative) 01/15/18 18:45 Urine WBC (Auto) 1.0 /HPF (0.0-6.0) 01/15/18 18:45 Urine RBC (Auto) 1.0 /HPF (0.0-6.0) 01/15/18 18:45 Urine Mucus Few /HPF 01/15/18 18:45 Vancomycin Trough 13.9 ug/mL (5.0-20.0) 01/18/18 11:53 Urine Opiates Screen Presumptive negative 01/15/18 18:45 Urine Methadone Screen Presumptive negative 01/15/18 18:45 Ur Barbiturates Screen Presumptive negative 01/15/18 18:45 Ur Phencyclidine Scrn Presumptive negative 01/15/18 18:45 Ur Amphetamines Screen Presumptive positive 01/15/18 18:45 U Benzodiazepines Scrn Presumptive negative 01/15/18 18:45 Urine Cocaine Screen Presumptive negative 01/15/18 18:45 U Marijuana (THC) Screen Presumptive positive 01/15/18 18:45 Drugs of Abuse Note Disclamer 01/15/18 18:45
[2018-01-19] MEDS: ZESTRIL PO SCH (09:20)
[2018-01-19] MEDS: NACL 0.9% 1000 ML 1,000 ML IV SCH (09:21)
[2018-01-19] MEDS: HCTZ PO SCH (09:21)
[2018-01-19] MEDS: VANCOMYCIN/NS 1 GM/250 ML 1 GM/250 ML BAG IV SCH ×2 (13:04→22:00)
[2018-01-19] MEDS: NORCO 10/325 PO PRN ×2 (13:11→18:23)
--- NOTE | 2018-01-19 14:23 | Consultation ---
History of Present Illness Consult date: 01/19/18 Requesting physician: EMAUNEL ROME Consult reason: aortic stenosis History of present illness: The patient is a 47 YO female with a past medical history significant for HTN and tobacco use. She is a rather poor historian. She presented with complaints of generalized weakness, fatigue, generalized pain and fever for several days prior to arrival. Since admission, she has been diagnosed with complicated UTI, ? pyelonephritis, sepsis, staph aureus bacteremia, cholelithiasis. She underwent echocardiogram which showed EF 35%, low flow, low gradient aortic stenosis and mod AR with KIM 1.2cm2 and mean AV gradient 28mmHg and thus cardiology has been consulted for further evaluation. Pt denies any prior cardiac issues, including AMI, CAD, heart failure or valvular disease. She denies any current cardiac complaints. Past History Past Medical History: hypertension Past Surgical History: No surgical history Social history: smoking. denies: alcohol abuse Family history: no significant family history Medications and Allergies Allergies Allergy/AdvReac Type Severity Reaction Status Date / Time No Known Allergies Allergy Verified 09/02/13 06:55 Home Medications Medication Instructions Recorded Confirmed Last Taken Type No Known Home Medications [No 01/17/18 01/17/18 Unknown History Reported Home Medications] Active Meds: Active Medications Acetaminophen (Tylenol) 650 mg PO Q4H PRN PRN Reason: Fever >101 Last Admin: 01/17/18 08:46 Dose: 650 mg Acetaminophen/Hydrocodone Bitart ([place] 10/325) 1 each PO Q4H PRN PRN Reason: Pain, Moderate (4-6) Last Admin: 01/19/18 13:11 Dose: 1 each Diazepam (Valium) 5 mg PO Q8H PRN PRN Reason: Anxiety Last Admin: 01/19/18 05:49 Dose: 5 mg Hydrochlorothiazide (Hctz) 25 mg PO QDAY SUSAN Last Admin: 01/19/18 09:21 Dose: 25 mg Hydromorphone HCl (Dilaudid) 0.5 mg IV Q6H PRN PRN Reason: Pain , Severe (7-10) Last Admin: 01/19/18 05:48 Dose: 0.5 mg Piperacillin Sod/Tazobactam Sod (Zosyn/Ns 4.5gm/100ml) 4.5 gm in 100 mls @ 200 mls/hr IV Q8HR SUSAN; Protocol Last Admin: 01/19/18 05:52 Dose: 200 mls/hr Vancomycin HCl (Vancomycin/Ns 1 Gm/250 Ml) 1 gm in 250 mls @ 166.667 mls/hr IV Q12HR [facility] Last Admin: 01/19/18 13:04 Dose: 166.667 mls/hr Sodium Chloride (Nacl 0.9% 1000 Ml) 1,000 mls @ 125 mls/hr IV DIRECT [facility] Last Admin: 01/19/18 09:21 Dose: 125 mls/hr Lisinopril (Zestril) 20 mg PO QDAY [facility] Last Admin: 01/19/18 09:20 Dose: 20 mg Nicotine (Habitrol) 21 mg TD Q24H [facility] Last Admin: 01/18/18 00:37 Dose: Not Given Ondansetron HCl (Zofran) 4 mg IV Q8H PRN PRN Reason: Nausea And Vomiting Last Admin: 01/17/18 08:48 Dose: 4 mg Vancomycin HCl (Vancomycin Pharmacy To Dose) 1 each IV PKCONSULT [facility] Review of Systems Constitutional: fever, chills, fatigue, weakness, no weight loss, no weight gain Ears, nose, mouth and throat: no ear pain, no nose pain, no sinus pressure, no sinus pain Cardiovascular: no chest pain, no orthopnea, no palpitations, no rapid/ irregular heart beat, no edema, no syncope, no lightheadedness, no shortness of breath Respiratory: no cough, no cough with sputum, no excessive sputum, no hemoptysis , no shortness of breath, no dyspnea on exertion Gastrointestinal: no abdominal pain, no nausea, no vomiting, no diarrhea, no constipation, no change in bowel habits Genitourinary Female: flank pain, no pelvic pain, no dysuria, no urinary frequency, no urgency Musculoskeletal: no neck stiffness, no neck pain Integumentary: no rash, no pruritis, no redness, no sores, no wounds Neurological: no head injury, no paralysis, no weakness, no parathesias, no numbness, no tingling, no seizures, no syncope Psychiatric: no anxiety Endocrine: no cold intolerance, no heat intolerance Hematologic/Lymphatic: no easy bruising, no easy bleeding, no lymphadenopathy Allergic/Immunologic: no urticaria, no wheezing, no persistent infections Physical Examination Vital Signs Pulse Ox 90 06/25/18 17:49 General appearance: no acute distress HEENT: Positive: PERRL, Normocephaly, Mucus Membranes Moist Neck: Positive: neck supple, trachea midline Cardiac: Positive: Regular Rhythm, S1/S2, Systolic Murmur Lungs: Positive: clear to auscultation Neuro: Positive: Grossly Intact Abdomen: Positive: Soft. Negative: Tender Skin: Positive: Clear. Negative: Rash, Wound Musculoskeletal: No Fluid Collection, No Pain, Normal Range of Motion Extremities: Absent: edema Results 01/18/18 07:00 01/18/18 07:00 - Imaging and Cardiology Echo: report reviewed (EF 35%, low flow, low gradient aortic stenosis and mod AR with KIM 1.2cm2 and mean AV gradient 28mmHg ) EKG: report reviewed, image reviewed EKG interpretations - Telemetry EKG Rhythm: Sinus Tachycardia - EKG Sinus rhythms and dysrhythmias: sinus tachycardia Chamber hypertrophy or enlargement: left ventricular hypertro Assessment and Plan Assessment: Low flow low gradient aortic stenosis CMP - EF 35%; no current clinical evidence of acutely decompensated HF Sepsis / complicated UTI / ? pyelonephritis / staph aureus bacteremia Sinus tachycardia - suspect physiologic secondary to sepsis Cholelithiasis HTN Anemia Thrombocytopenia Tobacco use - cessation encouraged Plan: Currently stable cardiac status. Continue lisinopril and initiate lopressor in setting of CMP. Will plan for further evaluation/management of aortic stenosis and CMP as OP ( can consider coronary angiography) once acute infection is resolved. Nothing further to add from cardiac perspective at this time. Will follow on as needed basis. Recommend follow up in our office with Dr. Cabral within 1-2 weeks of hospital discharge ([phone]). The patient has been seen in conjunction with Dr. Cabral who agrees with the assessment and plan of care.
--- NOTE | 2018-01-19 16:38 | Consultation ---
History of Present Illness - Reason for Consult Consult date: 01/19/18 bacteremia Requesting physician: EMANUEL ROME - History of Present Illness 47 yo female with a history of hypertension, chronic back pains and migraines; admitted on 01/15/18 due to worsening abd pain/back pain, malaise, weakness and a subjective fever. Patient is a poor historian. In the ED, temp 101.8, HR 136, R 26, O2 sat 90%, BP 147/83. WBC 15.3. Hg 11.8. Plat 247. Creat 0.8. UA neg. US abd showed Mild gallbladder wall thickening and minimal fluid in the gallbladder fossa. Subtle echogenic foci are seen in the gallbladder which may reflect sludge. CTA ches showed No evidence of pulmonary embolus. Borderline aneurysmal dilatation ascending thoracic aorta. No dissection is seen. Prior granulomatous disease. Possible gallbladder wall thickening or small amount of fluid in the gallbladder fossa. The entire gallbladder is not visualized. HIDA scan normal. pCXR unremarkable. UDS + Amph + marihuana Micro: Blood cx 01/15 MRSA 4 of 4 bottles Abx: zosyn 01/16 vanco 01/16 Past History Past Medical History: hypertension Past Surgical History: No surgical history Social history: smoking. denies: alcohol abuse Family history: no significant family history Medications and Allergies Allergies Allergy/AdvReac Type Severity Reaction Status Date / Time No Known Allergies Allergy Verified 09/02/13 06:55 Home Medications Medication Instructions Recorded Confirmed Last Taken Type No Known Home Medications [No 01/17/18 01/17/18 Unknown History Reported Home Medications] Active Meds: Active Medications Acetaminophen (Tylenol) 650 mg PO Q4H PRN PRN Reason: Fever >101 Last Admin: 01/17/18 08:46 Dose: 650 mg Acetaminophen/Hydrocodone Bitart ([place] 10/325) 1 each PO Q4H PRN PRN Reason: Pain, Moderate (4-6) Last Admin: 01/19/18 13:11 Dose: 1 each Diazepam (Valium) 5 mg PO Q8H PRN PRN Reason: Anxiety Last Admin: 01/19/18 05:49 Dose: 5 mg Hydrochlorothiazide (Hctz) 25 mg PO QDAY SUSAN Last Admin: 01/19/18 09:21 Dose: 25 mg Hydromorphone HCl (Dilaudid) 0.5 mg IV Q6H PRN PRN Reason: Pain , Severe (7-10) Last Admin: 01/19/18 05:48 Dose: 0.5 mg Piperacillin Sod/Tazobactam Sod (Zosyn/Ns 4.5gm/100ml) 4.5 gm in 100 mls @ 200 mls/hr IV Q8HR SUSAN; Protocol Last Admin: 01/19/18 16:06 Dose: 200 mls/hr Vancomycin HCl (Vancomycin/Ns 1 Gm/250 Ml) 1 gm in 250 mls @ 166.667 mls/hr IV Q12HR [facility] Last Admin: 01/19/18 13:04 Dose: 166.667 mls/hr Sodium Chloride (Nacl 0.9% 1000 Ml) 1,000 mls @ 125 mls/hr IV DIRECT [facility] Last Admin: 01/19/18 09:21 Dose: 125 mls/hr Lisinopril (Zestril) 20 mg PO QDAY [facility] Last Admin: 01/19/18 09:20 Dose: 20 mg Metoprolol Tartrate (Lopressor) 25 mg PO BID [facility] Nicotine (Habitrol) 21 mg TD Q24H [facility] Last Admin: 01/18/18 00:37 Dose: Not Given Ondansetron HCl (Zofran) 4 mg IV Q8H PRN PRN Reason: Nausea And Vomiting Last Admin: 01/17/18 08:48 Dose: 4 mg Vancomycin HCl (Vancomycin Pharmacy To Dose) 1 each IV PKCONSULT [facility] Review of Systems All systems: negative (as per HPI) Physical Examination - Physical Exam Narrative exam: Alert in NAD anxious NC AT JOSY OP clear Neck no LN Lungs CTA daniel CV rrr +murmur Abd soft +TTP left flank + left CVT Ext no edema Skin scatted nodular rash - Constitutional Vitals: Vital Signs Temp Pulse Resp BP Pulse Ox 98.0 F 109 H 20 155/93 94 01/19/18 11:06 01/19/18 11:06 01/19/18 11:06 01/19/18 11:06 01/19/18 11:06 Temperature -Last 24 Hours Temperature 98.0 F Temperature 98.2 F Temperature 99.8 F Temperature 97.7 F Results - Labs CBC & Chem 7: 01/18/18 07:00 01/18/18 07:00 Assessment and Plan Assessment: 1) Sepsis: POA with fever, tachycardia, leukoctosis; source MRSA bacteremia 2) MRSA bacteremia; source ? skin pustules -Blood cx 01/15 MRSA 4 of 4 bottles -TTE EF 35%, mod AR/AE -CT lumbar spine w/o cont normal 3) Hyponatremia 4) Mild elevated LFTs - cholelithiasis 5) Chronic back pain - worsening 6) Polysubstance abuse + Amph + marihuana Plan: -blood cx today -continue vancomcyin -stop zosyn -MRI lumbar/thoracic spine -obtain cards consult for MICHAEL -will require 4 weeks IV abx Im rounding on Monday [place]
[2018-01-19 21:55] LABS: Hematocrit 29.5 % (30.3-42.9); Hemoglobin 9.4 gm/dl (10.1-14.3); Mean Corpuscular HGB Conc 32 % (30-34); Mean Corpuscular Volume 79 fl (79-97); Red Blood Count 3.72 M/mm3 (3.65-5.03); Red Cell Distribution Width 17.6 % (13.2-15.2)
[2018-01-19 21:59] LABS: Mean Corpuscular Hemoglobin 25 pg (28-32)
[2018-01-19] MEDS: LOPRESSOR PO SCH (22:00)
[2018-01-19] MEDS: HABITROL TD SCH (22:00)
[2018-01-19 22:17] LABS: Alanine Aminotransferase 27 units/L (7-56); Albumin 2.8 g/dL (3.9-5); BUN/Creatinine Ratio 16; Blood Urea Nitrogen 11 mg/dL (7-17); Calcium 7.7 mg/dL (8.4-10.2); Hemolysis Index 31
[2018-01-19 22:51] LABS: Platelet Count 61 K/mm3 (140-440)
[2018-01-20] MEDS: NORCO 10/325 PO PRN ×3 (02:32→22:20)
[2018-01-20] MEDS: VALIUM PO PRN ×2 (02:34→22:21)
--- NOTE | 2018-01-20 09:20 | Progress Note ---
Assessment and Plan Assessment and plan: Patient is 47 yo woman with a history of hypertension, chronic back pains and migraines who pw abd pains/back pains * Ultrasound Abdomen limited IMPRESSION: Mild gallbladder wall thickening and minimal fluid in the gallbladder fossa. Subtle echogenic foci are seen in the gallbladder which may reflect sludge. If clinically indicated nuclear medicine HIDA scan could be performed to exclude acute cholecystitis. * CTA chest IMPRESSION: No evidence of pulmonary embolus. Atherosclerosis coronary arteries. Borderline aneurysmal dilatation ascending thoracic aorta. No dissection is seen. Prior granulomatous disease. Possible gallbladder wall thickening or small amount of fluid in the gallbladder fossa. The entire gallbladder is not visualized. If clinically indicated gallbladder ultrasound could be obtained for further evaluation. * HIDA scan normal * pCXR unremarkable -Sepsis due to acute complicated UTI r/o pyelonephritis: continue IV abx -UTI with sepsis: urine culture contaminated, continue iv abx -Thoracic aneurysms dilatation ruled out: consult Vascular to review film==> d/ w Dr. Pretty, refer to his note. -Acute hypoxic respiratory failure, she took o2 via nasal canula off briefly due to claustrophobia, sats was dropping to 89% so i immediately re-applied O2, sat went up to 91% -Acute cholecystitis ruled out per Gen. surgery. -Cholelithiasis, surgery evaluated Gallbladder -DVT prophylaxis: sq heparin -Staph aureus bacteremia: consult ID and get 2D ECHO to start, final report still not back yet. * CT abd/pelvis wo contrast IMPRESSION: Small bilateral pleural effusions. Cholelithiasis. Right renal stones, nonobstructing. Trace pelvic ascites. * CT lumbar spine reported as normal Awaiting ECHO===>2D ECHO reported 1. low flow, low gradient aortic stenosis 2. moderate AR 3. suggest dobutamine stress echo if clinically indicated. EF is diminshed at 35%. Aortic valve area is 1.2 square cm follow up blood culture 01/20/18. Sepsis: NO NEW FEVER, Patient per documentation unable to get MRI of lumber spine due to severe clustaphobia. Will defer to ID if Anesthesia should be consulted for sedation or if outpatient Open MRI will be a better option. Drug abuse hx -pt denies IVDA. Cardiology recommends outpatient work up CONTINUE BB AND ACEI Hypoxia-Continue oxygen and wean as tolerated Thrombocytopenia-Awaiting this am lab to see if lab error. Discussed with nursing. History Interval history: Patient seen and examined remains in no acute distress. Hospitalist Physical - Constitutional Vitals: Temp Pulse Resp BP Pulse Ox 97.7 F 81 16 127/78 95 01/20/18 05:36 01/20/18 05:36 01/20/18 05:36 01/20/18 05:36 01/20/18 05:36 General appearance: Present: no acute distress, well-nourished - EENT Eyes: Present: PERRL ENT: clear oral mucosa - Neck Neck: Present: supple, normal ROM - Respiratory Respiratory: bilateral: CTA - Cardiovascular Rhythm: regular Heart Sounds: Present: S1 & S2. Absent: systolic murmur - Extremities Extremities: no ischemia, pulses intact, pulses symmetrical, No edema, normal temperature, Full ROM Peripheral Pulses: within normal limits - Abdominal General gastrointestinal: soft, non-tender, non-distended, normal bowel sounds - Integumentary Integumentary: Present: clear, warm, dry, rash - Psychiatric Psychiatric: depressed - Neurologic Neurologic: CNII-XII intact, moves all extremities - Allied Health Allied health notes reviewed: nursing Results - Labs CBC & Chem 7: 01/20/18 15:20 01/20/18 15:20 Labs: Laboratory Last Values WBC 12.1 K/mm3 (4.5-11.0) H 01/19/18 21:44 RBC 3.72 M/mm3 (3.65-5.03) 01/19/18 21:44 Hgb 9.4 gm/dl (10.1-14.3) L 01/19/18 21:44 Hct 29.5 % (30.3-42.9) L 01/19/18 21:44 MCV 79 fl (79-97) 01/19/18 21:44 MCH 25 pg (28-32) L 01/19/18 21:44 MCHC 32 % (30-34) 01/19/18 21:44 RDW 17.6 % (13.2-15.2) H 01/19/18 21:44 Plt Count 61 K/mm3 (140-440) L 01/19/18 21:44 Add Manual Diff Complete 01/17/18 06:33 Total Counted 100 01/17/18 06:33 Seg Neutrophils % Grain Wafer Machine Operator 01/17/18 06:33 Seg Neuts % (Manual) 79.0 % (40.0-70.0) H 01/17/18 06:33 Band Neutrophils % 12.0 % 01/17/18 06:33 Lymphocytes % (Manual) 5.0 % (13.4-35.0) L 01/17/18 06:33 Reactive Lymphs % (Man) 0 % 01/17/18 06:33 Monocytes % (Manual) 4.0 % (0.0-7.3) 01/17/18 06:33 Eosinophils % (Manual) 0 % (0.0-4.3) 01/17/18 06:33 Basophils % (Manual) 0 % (0.0-1.8) 01/17/18 06:33 Metamyelocytes % 0 % 01/17/18 06:33 Myelocytes % 0 % 01/17/18 06:33 Promyelocytes % 0 % 01/17/18 06:33 Blast Cells % 0 % 01/17/18 06:33 Nucleated RBC % Not Reportable 01/17/18 06:33 Seg Neutrophils # Man 11.5 K/mm3 (1.8-7.7) H 01/17/18 06:33 Band Neutrophils # 1.8 K/mm3 01/17/18 06:33 Lymphocytes # (Manual) 0.7 K/mm3 (1.2-5.4) L 01/17/18 06:33 Abs React Lymphs (Man) 0.0 K/mm3 01/17/18 06:33 Monocytes # (Manual) 0.6 K/mm3 (0.0-0.8) 01/17/18 06:33 Eosinophils # (Manual) 0.0 K/mm3 (0.0-0.4) 01/17/18 06:33 Basophils # (Manual) 0.0 K/mm3 (0.0-0.1) 01/17/18 06:33 Metamyelocytes # 0.0 K/mm3 01/17/18 06:33 Myelocytes # 0.0 K/mm3 01/17/18 06:33 Promyelocytes # 0.0 K/mm3 01/17/18 06:33 Blast Cells # 0.0 K/mm3 01/17/18 06:33 WBC Morphology Not Reportable 01/17/18 06:33 Hypersegmented Neuts Not Reportable 01/17/18 06:33 Hyposegmented Neuts Not Reportable 01/17/18 06:33 Hypogranular Neuts Not Reportable 01/17/18 06:33 Smudge Cells Not Reportable 01/17/18 06:33 Toxic Granulation Not Reportable 01/17/18 06:33 Toxic Vacuolation Not Reportable 01/17/18 06:33 Dohle Bodies Not Reportable 01/17/18 06:33 Pelger-Huet Anomaly Not Reportable 01/17/18 06:33 Nicolas Rods Not Reportable 01/17/18 06:33 Platelet Estimate Consistent w auto 01/17/18 06:33 Clumped Platelets Not Reportable 01/17/18 06:33 Plt Clumps, EDTA Not Reportable 01/17/18 06:33 Large Platelets Not Reportable 01/17/18 06:33 Giant Platelets Not Reportable 01/17/18 06:33 Platelet Satelliting Not Reportable 01/17/18 06:33 Plt Morphology Comment Not Reportable 01/17/18 06:33 RBC Morphology Not Reportable 01/17/18 06:33 Dimorphic RBCs Not Reportable 01/17/18 06:33 Polychromasia Not Reportable 01/17/18 06:33 Hypochromasia 1+ 01/17/18 06:33 Poikilocytosis Not Reportable 01/17/18 06:33 Anisocytosis 1+ 01/17/18 06:33 Microcytosis Not Reportable 01/17/18 06:33 Macrocytosis Not Reportable 01/17/18 06:33 Spherocytes Not Reportable 01/17/18 06:33 Pappenheimer Bodies Not Reportable 01/17/18 06:33 Sickle Cells Not Reportable 01/17/18 06:33 Target Cells Not Reportable 01/17/18 06:33 Tear Drop Cells Not Reportable 01/17/18 06:33 Ovalocytes Not Reportable 01/17/18 06:33 Helmet Cells Not Reportable 01/17/18 06:33 [place] Bodies Not Reportable 01/17/18 06:33 Paicines Rings Not Reportable 01/17/18 06:33 Lenin Cells Not Reportable 01/17/18 06:33 Bite Cells Not Reportable 01/17/18 06:33 Crenated Cell Not Reportable 01/17/18 06:33 Elliptocytes Not Reportable 01/17/18 06:33 Acanthocytes (Spur) Not Reportable 01/17/18 06:33 Rouleaux Not Reportable 01/17/18 06:33 Hemoglobin C Crystals Not Reportable 01/17/18 06:33 Schistocytes Not Reportable 01/17/18 06:33 Malaria parasites Not Reportable 01/17/18 06:33 Ozzy Bodies Not Reportable 01/17/18 06:33 Hem Pathologist Commnt No 01/17/18 06:33 D-Dimer 2713.80 ng/mlDDU (0-234) H 01/15/18 18:20 Sodium 135 mmol/L (137-145) L 01/19/18 21:44 Potassium 3.5 mmol/L (3.6-5.0) L 01/19/18 21:44 Chloride 101.0 mmol/L (98-107) 01/19/18 21:44 Carbon Dioxide 20 mmol/L (22-30) L 01/19/18 21:44 Anion Gap 18 mmol/L 01/19/18 21:44 BUN 11 mg/dL (7-17) 01/19/18 21:44 Creatinine 0.7 mg/dL (0.7-1.2) 01/19/18 21:44 Estimated GFR > 60 ml/min 01/19/18 21:44 BUN/Creatinine Ratio 16 % 01/19/18 21:44 Glucose 147 mg/dL (65-100) H 01/19/18 21:44 Lactic Acid 1.50 mmol/L (0.7-2.0) 01/15/18 21:19 Calcium 7.7 mg/dL (8.4-10.2) L 01/19/18 21:44 Magnesium 2.10 mg/dL (1.7-2.3) 01/17/18 06:33 Total Bilirubin 0.30 mg/dL (0.1-1.2) 01/19/18 21:44 AST 39 units/L (5-40) 01/19/18 21:44 ALT 27 units/L (7-56) 01/19/18 21:44 Alkaline Phosphatase 74 units/L (35-129) 01/19/18 21:44 Total Protein 5.1 g/dL (6.3-8.2) L 01/19/18 21:44 Albumin 2.8 g/dL (3.9-5) L 01/19/18 21:44 Albumin/Globulin Ratio 1.2 % 01/19/18 21:44 Urine Color Yellow (Yellow) 01/15/18 18:45 Urine Turbidity Clear (Clear) 01/15/18 18:45 Urine pH 6.0 (5.0-7.0) 01/15/18 18:45 Ur Specific [place] 1.011 (1.003-1.030) 01/15/18 18:45 Urine Protein <15 mg/dl mg/dL (Negative) 01/15/18 18:45 Urine Glucose (UA) Neg mg/dL (Negative) 01/15/18 18:45 Urine Ketones Neg mg/dL (Negative) 01/15/18 18:45 Urine Blood Neg (Negative) 01/15/18 18:45 Urine Nitrite Pos (Negative) 01/15/18 18:45 Urine Bilirubin Neg (Negative) 01/15/18 18:45 Urine Urobilinogen < 2.0 mg/dL (<2.0) 01/15/18 18:45 Ur Leukocyte Esterase Tr (Negative) 01/15/18 18:45 Urine WBC (Auto) 1.0 /HPF (0.0-6.0) 01/15/18 18:45 Urine RBC (Auto) 1.0 /HPF (0.0-6.0) 01/15/18 18:45 Urine Mucus Few /HPF 01/15/18 18:45 Vancomycin Trough 13.9 ug/mL (5.0-20.0) 01/18/18 11:53 Urine Opiates Screen Presumptive negative 01/15/18 18:45 Urine Methadone Screen Presumptive negative 01/15/18 18:45 Ur Barbiturates Screen Presumptive negative 01/15/18 18:45 Ur Phencyclidine Scrn Presumptive negative 01/15/18 18:45 Ur Amphetamines Screen Presumptive positive 01/15/18 18:45 U Benzodiazepines Scrn Presumptive negative 01/15/18 18:45 Urine Cocaine Screen Presumptive negative 01/15/18 18:45 U Marijuana (THC) Screen Presumptive positive 01/15/18 18:45 Drugs of Abuse Note Disclamer 01/15/18 18:45
[2018-01-20] MEDS: ZESTRIL PO SCH (10:45)
[2018-01-20] MEDS: LOPRESSOR PO SCH ×2 (10:45→22:22)
[2018-01-20] MEDS: HCTZ PO SCH (10:45)
[2018-01-20] MEDS: HABITROL TD SCH (13:04)
[2018-01-20] MEDS: VANCOMYCIN/NS 1 GM/250 ML 1 GM/250 ML BAG IV SCH ×2 (13:55→23:51)
[2018-01-20 15:59] LABS: Hematocrit 33.8 % (30.3-42.9); Hemoglobin 10.5 gm/dl (10.1-14.3); Mean Corpuscular HGB Conc 31 % (30-34); Mean Corpuscular Volume 80 fl (79-97); Red Blood Count 4.26 M/mm3 (3.65-5.03); Red Cell Distribution Width 17.3 % (13.2-15.2)
[2018-01-20 16:00] LABS: Mean Corpuscular Hemoglobin 25 pg (28-32); Platelet Count 93 K/mm3 (140-440)
[2018-01-20 16:21] LABS: Alanine Aminotransferase 25 units/L (7-56); Albumin 2.4 g/dL (3.9-5); BUN/Creatinine Ratio 13; Blood Urea Nitrogen 9 mg/dL (7-17); Calcium 8.3 mg/dL (8.4-10.2); Hemolysis Index 39
[2018-01-20] MEDS ORDERED: NACL 0.9% 1000 ML 1,000 ML with SODIUM BICARBONATE 25 MEQ IV SCH (16:53)
[2018-01-20] MEDS: NACL 0.9% IV SCH (23:50)
[2018-01-20] MEDS: SODIUM BICARBONATE IV SCH (23:50)
[2018-01-21] MEDS: TYLENOL PO PRN (06:38)
[2018-01-21] MEDS: VANCOMYCIN/NS 1 GM/250 ML 1 GM/250 ML BAG IV SCH ×2 (12:22→22:24)
--- NOTE | 2018-01-21 12:22 | Progress Note ---
Assessment and Plan Sepsis Acute cholecystitis UTI Hyponatremia Hypokalemia Alcohol abuse Plan Continue with vancomycin per ID Blood culture was positive for gram-positive cocci and clusters Surgical consult - cholecystitis ruled out. HIDA scan was normal. Supplements electrolyte imbalance. Check magnesium level IV hydration Alcohol cessation counseling done [facility] protocol DVT prophylaxis with heparin and SCDs Subjective Date of service: 01/21/18 Principal diagnosis: sepsis, UTI and cholecystitis Interval history: Patient seen and examined no new complaints. Still has low grade fever. No nausea no vomiting. Review laboratory and radiological data. Objective - Exam Narrative Exam: Constitutional: Well-nourished well-developed. Has low-grade fever. In no distress Head: Normocephalic atraumatic Eyes: Pupils are equal round and reactive to light Nose: No enlarged turbinates, no septal deviation. Mouth: Moist mucous membranes. Neck: Supple no thyromegaly. No bruit. No JVD Heart: Regular rate and rhythm, S1-S2 abnormal. No rubs murmurs or gallop Lungs: Clear to auscultation bilaterally no rales or rhonchi Abdomen: Soft, nontender. Bowel sound are present. Extremities: No edema no cyanosis and no clubbing. Neuro: Alert oriented Oriented x3. No focal sensory or motor deficit. Skin: No rashes no hyperemic spots Psychiatry: Euthymic. Calm. - Constitutional Vitals: Vital Signs - 12hr 01/21/18 06:02 Temperature 100.9 F H Pulse Rate 97 H Respiratory 20 Rate Blood Pressure 144/75 O2 Sat by Pulse 91 Oximetry - Labs CBC & Chem 7: 01/20/18 15:20 01/20/18 15:20 Labs: Abnormal lab results 01/20/18 01/20/18 Range/Units 15:20 15:20 WBC 12.8 H (4.5-11.0) K/mm3 MCH 25 L (28-32) pg RDW 17.3 H (13.2-15.2) % Plt Count 93 L (140-440) K/mm3 Sodium 131 L (137-145) mmol/L Potassium 3.4 L (3.6-5.0) mmol/L Carbon Dioxide 17 L (22-30) mmol/L Calcium 8.3 L (8.4-10.2) mg/dL Total Protein 5.6 L (6.3-8.2) g/dL Albumin 2.4 L (3.9-5) g/dL
[2018-01-21] MEDS: HABITROL TD SCH (12:26)
[2018-01-21] MEDS: ZESTRIL PO SCH (12:26)
[2018-01-21] MEDS: HCTZ PO SCH (12:28)
[2018-01-21] MEDS: LOPRESSOR PO SCH ×2 (12:28→22:29)
[2018-01-21] MEDS: VALIUM PO PRN ×2 (14:52→22:30)
[2018-01-21] MEDS: NORCO 10/325 PO PRN ×2 (14:53→22:29)
[2018-01-21] MEDS: NACL 0.9% IV SCH (22:46)
[2018-01-21] MEDS: SODIUM BICARBONATE IV SCH (22:46)
[2018-01-22] MEDS: TYLENOL PO PRN ×2 (06:21→13:51)
[2018-01-22 10:02] LABS: Basophils % (Auto) 0.3 % (0.0-1.8); Eosinophils # (Auto) 0.1 K/mm3 (0.0-0.4); Eosinophils % (Auto) 0.8 % (0.0-4.3); Hematocrit 26.9 % (30.3-42.9); Hemoglobin 8.6 gm/dl (10.1-14.3); Lymphocytes # (Auto) 1.2 K/mm3 (1.2-5.4); Lymphocytes % (Auto) 7.3 % (13.4-35.0); Mean Corpuscular HGB Conc 32 % (30-34); Mean Corpuscular Volume 79 fl (79-97); Monocytes # (Auto) 0.8 K/mm3 (0.0-0.8); Monocytes % (Auto) 4.9 % (0.0-7.3); Platelet Count 198 K/mm3 (140-440); Red Cell Distribution Width 16.9 % (13.2-15.2)
[2018-01-22 10:03] LABS: Mean Corpuscular Hemoglobin 25 pg (28-32)
[2018-01-22 10:31] LABS: Alanine Aminotransferase 20 units/L (7-56); Albumin 2.7 g/dL (3.9-5); BUN/Creatinine Ratio 10; Blood Urea Nitrogen 7 mg/dL (7-17); Calcium 8.4 mg/dL (8.4-10.2); Hemolysis Index 1
[2018-01-22] MEDS: LOPRESSOR PO SCH ×2 (10:34→21:50)
[2018-01-22] MEDS: ZESTRIL PO SCH (10:34)
[2018-01-22] MEDS: HCTZ PO SCH (10:35)
[2018-01-22] MEDS: HABITROL TD SCH ×2 (10:35→10:38)
[2018-01-22] MEDS ORDERED: K-DUR PO SCH (11:00)
[2018-01-22] MEDS: VANCOMYCIN/NS 1 GM/250 ML 1 GM/250 ML BAG IV SCH (12:00)
[2018-01-22] MEDS: VANCOMYCIN 1,250 MG in NACL 0.9% 250ML 250 ML IV SCH (12:03)
--- NOTE | 2018-01-22 12:12 | Progress Note ---
Assessment and Plan Sepsis Acute cholecystitis UTI Hyponatremia Hypokalemia Alcohol abuse Plan Worsening Leukocytosis. Discussew tih Dr. Conklin, ID who had suggested MICHAEL Continue with vancomycin per ID Blood culture was positive for gram-positive cocci and clusters Surgical consult - cholecystitis ruled out. HIDA scan was normal. Blood cx 01/15 MRSA 4 of 4 bottles -TTE EF 35%, mod AR/AE Supplements K+ and Phosphorus IV hydration DVT prophylaxis with heparin and SCDs Subjective Date of service: 01/22/18 Principal diagnosis: sepsis, UTI and cholecystitis Interval history: Patient seen and examined no new complaints. Still has low grade fever. No nausea no vomiting. Review laboratory and radiological data. Objective - Exam Narrative Exam: Constitutional: Well-nourished well-developed. Has low-grade fever. In no distress Head: Normocephalic atraumatic Eyes: Pupils are equal round and reactive to light Nose: No enlarged turbinates, no septal deviation. Mouth: Moist mucous membranes. Neck: Supple no thyromegaly. No bruit. No JVD Heart: Regular rate and rhythm, S1-S2 with DANGELO of MR 4/6. No rubs Lungs: Clear to auscultation bilaterally no rales or rhonchi Abdomen: Soft, nontender. Bowel sound are present. Extremities: No edema no cyanosis and no clubbing. Neuro: Alert oriented Oriented x3. No focal sensory or motor deficit. Skin: No rashes no hyperemic spots Psychiatry: Euthymic. Calm. - Constitutional Vitals: Vital Signs - 12hr 01/22/18 01/22/18 05:59 10:34 Temperature 100.3 F H Pulse Rate 104 H Respiratory 20 Rate Blood Pressure 146/72 134/70 O2 Sat by Pulse 91 Oximetry - Labs CBC & Chem 7: 01/22/18 09:47 01/22/18 09:47 Labs: Abnormal lab results 01/22/18 01/22/18 Range/Units 09:47 09:47 WBC 15.8 H (4.5-11.0) K/mm3 RBC 3.40 L (3.65-5.03) M/mm3 Hgb 8.6 L (10.1-14.3) gm/dl Hct 26.9 L D (30.3-42.9) % MCH 25 L (28-32) pg RDW 16.9 H (13.2-15.2) % Lymph % (Auto) 7.3 L (13.4-35.0) % Seg Neutrophils % 86.7 H (40.0-70.0) % Seg Neutrophils # 13.7 H (1.8-7.7) K/mm3 Potassium 2.4 L* D (3.6-5.0) mmol/L Chloride 93.6 L (98-107) mmol/L Glucose 127 H (65-100) mg/dL Total Protein 5.8 L (6.3-8.2) g/dL Albumin 2.7 L (3.9-5) g/dL
[2018-01-22] MEDS: VALIUM PO PRN ×2 (13:51→21:50)
[2018-01-22] MEDS: NORCO 10/325 PO PRN ×2 (13:58→21:49)
[2018-01-22] MEDS: KCL 10MEQ/100ML 10 MEQ/100 ML BAG IV SCH ×4 (14:06→23:56)
[2018-01-22] MEDS ORDERED: ATIVAN IV NR (14:30)
--- NOTE | 2018-01-22 15:07 | Progress Note ---
Assessment and Plan Assessment: 1) Sepsis: POA with fever, tachycardia, leukoctosis; source MRSA bacteremia 2) MRSA bacteremia; source ? skin pustules -Blood cx 01/15 MRSA 4 of 4 bottles -Blood cx 01/19 negative -TTE EF 35%, mod AR/AE -CT lumbar spine w/o cont normal 3) Hyponatremia 4) Mild elevated LFTs - cholelithiasis 5) Chronic back pain - worsening 6) Polysubstance abuse + Amph + marihuana Plan: -blood cx today in light of fever -continue vancomcyin -MRI lumbar/thoracic spine - pending - pt demanding total sedation -request WBC tagged scan today -MICHAEL - pending -will require 4 - 6 weeks IV abx Discussed with Dr Brenda Conklin Subjective Date of service: 01/22/18 Principal diagnosis: sepsis, UTI and cholecystitis Interval history: Feels sick with severe left sided back pain. Still fever at 101. Micro: Blood cx 01/15 MRSA 4 of 4 bottles Blood cx 01/19 ngtd Abx: vanco 01/16 Previous abx: zosyn 01/16 Objective - Exam Narrative Exam: Alert in NAD anxious NC AT JOSY OP clear Neck no LN Lungs CTA daniel CV rrr +murmur Abd soft +TTP left flank + left CVT Ext no edema Skin scatted nodular rash - Constitutional Vitals: Vital Signs Temp Pulse Resp BP Pulse Ox 101.3 F H 114 H 22 172/93 92 01/22/18 13:38 01/22/18 13:38 01/22/18 13:38 01/22/18 13:38 01/22/18 13:38 Temperature -Last 24 Hours Temperature 101.3 F Temperature 100.3 F Temperature 100.3 F Temperature 98.0 F - Labs CBC & Chem 7: 01/22/18 09:47 01/22/18 09:47 Labs: Abnormal lab results 01/22/18 01/22/18 Range/Units 09:47 09:47 WBC 15.8 H (4.5-11.0) K/mm3 RBC 3.40 L (3.65-5.03) M/mm3 Hgb 8.6 L (10.1-14.3) gm/dl Hct 26.9 L D (30.3-42.9) % MCH 25 L (28-32) pg RDW 16.9 H (13.2-15.2) % Lymph % (Auto) 7.3 L (13.4-35.0) % Seg Neutrophils % 86.7 H (40.0-70.0) % Seg Neutrophils # 13.7 H (1.8-7.7) K/mm3 Potassium 2.4 L* D (3.6-5.0) mmol/L Chloride 93.6 L (98-107) mmol/L Glucose 127 H (65-100) mg/dL Total Protein 5.8 L (6.3-8.2) g/dL Albumin 2.7 L (3.9-5) g/dL
--- NOTE | 2018-01-22 21:10 | Magnetic Resonance Report ---
FINAL REPORT PROCEDURE: MR THORACIC SPINE WO CON TECHNIQUE: Magnetic resonance imaging of the thoracic spine was performed using standard pulse sequences without contrast material. CPT 84519 HISTORY: MRSA septicemia and severe back pain COMPARISON: No prior studies are available for comparison. FINDINGS: Vertebral alignment and height are within normal limits with normal bone marrow signal. Intervertebral discs are well maintained. There is no spinal canal or neural foraminal compromise. Pre and paravertebral soft tissues are within normal limits. Incidental note is made of moderate degree bilateral pleural effusions. IMPRESSION: Unremarkable thoracic spine Bilateral pleural effusions
--- NOTE | 2018-01-22 21:23 | Magnetic Resonance Report ---
FINAL REPORT PROCEDURE: MR LUMBAR SPINE WO CON TECHNIQUE: Magnetic resonance imaging of the lumbar spine was performed using standard pulse sequences without contrast material. CPT 96949 HISTORY: MRSA septicemia and severe back pain COMPARISON: No prior studies are available for comparison. FINDINGS: Vertebral alignment and height are within normal limits with normal bone marrow signal. Conus medullaris is normal in location and appearance. L1-2: No significant abnormality . L2-3: No significant abnormality . L3-4: No significant abnormality . L4-5: Disc desiccation is identified. There posterior annular tear without any evidence of disc herniation or spinal canal compromise. Mild degree bilateral facet hypertrophic degenerative changes are noted without any spinal canal or neural foraminal compromise.. L5-S1: No significant abnormality . Other: None . IMPRESSION: Disc dehydration and posterior annular tear without evidence of disc herniation at L4-5.
[2018-01-23] MEDS: NACL 0.9% IV SCH (01:20)
[2018-01-23] MEDS: SODIUM BICARBONATE IV SCH (01:20)
[2018-01-23] MEDS: VANCOMYCIN 1,250 MG in NACL 0.9% 250ML 250 ML IV SCH ×2 (02:21→11:33)
[2018-01-23] MEDS: NORCO 10/325 PO PRN ×3 (02:39→20:56)
[2018-01-23] MEDS: LOPRESSOR PO SCH ×2 (09:48→22:49)
[2018-01-23] MEDS: HCTZ PO SCH (09:49)
[2018-01-23] MEDS: ZESTRIL PO SCH (09:49)
[2018-01-23] MEDS: HABITROL TD SCH (09:50)
[2018-01-23] MEDS ORDERED: K-DUR PO SCH (10:00)
--- NOTE | 2018-01-23 10:13 | Progress Note ---
Assessment and Plan Assessment: 1) Sepsis: still high fever and increasing leukocytosis despite 8 days of vancomycin; source MRSA bacteremia 2) MRSA bacteremia; source ? skin pustules - with persistent fever ? vancomycin failure -Blood cx 01/15 MRSA 4 of 4 bottles -Blood cx 01/19 negative -TTE EF 35%, mod AR/AE -CT lumbar spine w/o cont normal -MRI lumbar and thoracic no abscesses 3) Hyponatremia 4) Mild elevated LFTs - cholelithiasis 5) Chronic back pain - ? 6) Polysubstance abuse + Amph + marihuana Plan: -f/u repeat blood cx -stop vancomcyin -start daptomycin -request WBC tagged scan to be done on -MICHAEL - pending -pt demanding to go home and considering leaving AMA - educated about possibility of and permanent consequences from untreated MRSA septicemia, still with fever and increasing leukocytosis -Cannot place PICC until fever resolved and blood cx neg for 48h -Preliminary OPAT - daptomycin 420 mg IV qday total 4 weeks until 02/19/18 - sent to residential case manager Discussed with residential case manager Rubin Subjective Date of service: 01/23/18 Principal diagnosis: sepsis, UTI and cholecystitis Interval history: Feels better still back pain. Still fever at 101.3 overnight Micro: Blood cx 01/15 MRSA 4 of 4 bottles Blood cx 01/19 neg Abx: vanco 01/16 Previous abx: zosyn 01/16 Objective - Exam Narrative Exam: Alert in NAD anxious NC AT JOSY OP clear Neck no LN Lungs CTA daniel CV rrr +murmur Abd soft +TTP left flank Ext no edema Skin scatted nodular rash - Constitutional Vitals: Vital Signs Temp Pulse Resp BP Pulse Ox 98.7 F 87 20 136/64 92 01/23/18 06:14 01/23/18 06:14 01/23/18 06:14 01/23/18 09:49 01/23/18 06:14 Temperature -Last 24 Hours Temperature 98.7 F Temperature 100.1 F Temperature 101.3 F - Labs CBC & Chem 7: 01/22/18 09:47 01/22/18 09:47 Labs: Abnormal lab results 01/22/18 Range/Units 09:47 Potassium 2.4 L* D (3.6-5.0) mmol/L Chloride 93.6 L (98-107) mmol/L Glucose 127 H (65-100) mg/dL Total Protein 5.8 L (6.3-8.2) g/dL Albumin 2.7 L (3.9-5) g/dL
--- NOTE | 2018-01-23 11:58 | Progress Note ---
Assessment and Plan Assessment and plan: Sepsis Acute cholecystitis UTI Hyponatremia Hypokalemia Alcohol abuse Plan Worsening Leukocytosis. Discussew tijason Conklin, ID who had suggested MICHAEL Continue with vancomycin per ID Blood culture was positive for gram-positive cocci and clusters Surgical consult - cholecystitis ruled out. HIDA scan was normal. Blood cx 01/15 MRSA 4 of 4 bottles -TTE EF 35%, mod AR/AE Supplements K+ and Phosphorus IV hydration DVT prophylaxis with heparin and SCDs History Interval history: Patient seen and examined medical records reviewed Patient feels slightly better, no new complaints Persistent fever ID recommend prison antibiotics Alert awake oriented 3 vital signs reviewed Hospitalist Physical - Constitutional Vitals: Temp Pulse Resp BP Pulse Ox 98.7 F 87 20 136/64 92 01/23/18 06:14 01/23/18 06:14 01/23/18 06:14 01/23/18 09:49 01/23/18 06:14 General appearance: Present: no acute distress, well-nourished, other ( chronically ill looking) - EENT Eyes: Present: PERRL, EOM intact - Neck Neck: Present: supple, normal ROM - Respiratory Respiratory effort: normal Respiratory: bilateral: diminished, negative: rales, rhonchi, wheezing - Cardiovascular Rhythm: regular Heart Sounds: Present: S1 & S2 - Extremities Extremities: no ischemia, No edema - Abdominal General gastrointestinal: soft, non-tender, non-distended, normal bowel sounds - Integumentary Integumentary: Present: clear, warm - Psychiatric Psychiatric: appropriate mood/affect, cooperative - Neurologic Neurologic: CNII-XII intact, moves all extremities Results - Labs CBC & Chem 7: 01/23/18 15:39 01/23/18 15:49 Labs: Laboratory Last Values WBC 15.8 K/mm3 (4.5-11.0) H 01/22/18 09:47 RBC 3.40 M/mm3 (3.65-5.03) L 01/22/18 09:47 Hgb 8.6 gm/dl (10.1-14.3) L 01/22/18 09:47 Hct 26.9 % (30.3-42.9) L D 01/22/18 09:47 MCV 79 fl (79-97) 01/22/18 09:47 MCH 25 pg (28-32) L 01/22/18 09:47 MCHC 32 % (30-34) 01/22/18 09:47 RDW 16.9 % (13.2-15.2) H 01/22/18 09:47 Plt Count 198 K/mm3 (140-440) D 01/22/18 09:47 Lymph % (Auto) 7.3 % (13.4-35.0) L 01/22/18 09:47 [place] % (Auto) 4.9 % (0.0-7.3) 01/22/18 09:47 Eos % (Auto) 0.8 % (0.0-4.3) 01/22/18 09:47 Baso % (Auto) 0.3 % (0.0-1.8) 01/22/18 09:47 Lymph # 1.2 K/mm3 (1.2-5.4) 01/22/18 09:47 [place] # 0.8 K/mm3 (0.0-0.8) 01/22/18 09:47 Eos # 0.1 K/mm3 (0.0-0.4) 01/22/18 09:47 Baso # 0.0 K/mm3 (0.0-0.1) 01/22/18 09:47 Add Manual Diff Complete 01/17/18 06:33 Total Counted 100 01/17/18 06:33 Seg Neutrophils % 86.7 % (40.0-70.0) H 01/22/18 09:47 Seg Neuts % (Manual) 79.0 % (40.0-70.0) H 01/17/18 06:33 Band Neutrophils % 12.0 % 01/17/18 06:33 Lymphocytes % (Manual) 5.0 % (13.4-35.0) L 01/17/18 06:33 Reactive Lymphs % (Man) 0 % 01/17/18 06:33 Monocytes % (Manual) 4.0 % (0.0-7.3) 01/17/18 06:33 Eosinophils % (Manual) 0 % (0.0-4.3) 01/17/18 06:33 Basophils % (Manual) 0 % (0.0-1.8) 01/17/18 06:33 Metamyelocytes % 0 % 01/17/18 06:33 Myelocytes % 0 % 01/17/18 06:33 Promyelocytes % 0 % 01/17/18 06:33 Blast Cells % 0 % 01/17/18 06:33 Nucleated RBC % Not Reportable 01/17/18 06:33 Seg Neutrophils # 13.7 K/mm3 (1.8-7.7) H 01/22/18 09:47 Seg Neutrophils # Man 11.5 K/mm3 (1.8-7.7) H 01/17/18 06:33 Band Neutrophils # 1.8 K/mm3 01/17/18 06:33 Lymphocytes # (Manual) 0.7 K/mm3 (1.2-5.4) L 01/17/18 06:33 Abs React Lymphs (Man) 0.0 K/mm3 01/17/18 06:33 Monocytes # (Manual) 0.6 K/mm3 (0.0-0.8) 01/17/18 06:33 Eosinophils # (Manual) 0.0 K/mm3 (0.0-0.4) 01/17/18 06:33 Basophils # (Manual) 0.0 K/mm3 (0.0-0.1) 01/17/18 06:33 Metamyelocytes # 0.0 K/mm3 01/17/18 06:33 Myelocytes # 0.0 K/mm3 01/17/18 06:33 Promyelocytes # 0.0 K/mm3 01/17/18 06:33 Blast Cells # 0.0 K/mm3 01/17/18 06:33 WBC Morphology Not Reportable 01/17/18 06:33 Hypersegmented Neuts Not Reportable 01/17/18 06:33 Hyposegmented Neuts Not Reportable 01/17/18 06:33 Hypogranular Neuts Not Reportable 01/17/18 06:33 Smudge Cells Not Reportable 01/17/18 06:33 Toxic Granulation Not Reportable 01/17/18 06:33 Toxic Vacuolation Not Reportable 01/17/18 06:33 Dohle Bodies Not Reportable 01/17/18 06:33 Pelger-Huet Anomaly Not Reportable 01/17/18 06:33 Nicolas Rods Not Reportable 01/17/18 06:33 Platelet Estimate Consistent w auto 01/17/18 06:33 Clumped Platelets Not Reportable 01/17/18 06:33 Plt Clumps, EDTA Not Reportable 01/17/18 06:33 Large Platelets Not Reportable 01/17/18 06:33 Giant Platelets Not Reportable 01/17/18 06:33 Platelet Satelliting Not Reportable 01/17/18 06:33 Plt Morphology Comment Not Reportable 01/17/18 06:33 RBC Morphology Not Reportable 01/17/18 06:33 Dimorphic RBCs Not Reportable 01/17/18 06:33 Polychromasia Not Reportable 01/17/18 06:33 Hypochromasia 1+ 01/17/18 06:33 Poikilocytosis Not Reportable 01/17/18 06:33 Anisocytosis 1+ 01/17/18 06:33 Microcytosis Not Reportable 01/17/18 06:33 Macrocytosis Not Reportable 01/17/18 06:33 Spherocytes Not Reportable 01/17/18 06:33 Pappenheimer Bodies Not Reportable 01/17/18 06:33 Sickle Cells Not Reportable 01/17/18 06:33 Target Cells Not Reportable 01/17/18 06:33 Tear Drop Cells Not Reportable 01/17/18 06:33 Ovalocytes Not Reportable 01/17/18 06:33 Helmet Cells Not Reportable 01/17/18 06:33 [place] Bodies Not Reportable 01/17/18 06:33 [place] Rings Not Reportable 01/17/18 06:33 [place] Cells Not Reportable 01/17/18 06:33 Bite Cells Not Reportable 01/17/18 06:33 Crenated Cell Not Reportable 01/17/18 06:33 Elliptocytes Not Reportable 01/17/18 06:33 Acanthocytes (Spur) Not Reportable 01/17/18 06:33 Rouleaux Not Reportable 01/17/18 06:33 Hemoglobin C Crystals Not Reportable 01/17/18 06:33 Schistocytes Not Reportable 01/17/18 06:33 Malaria parasites Not Reportable 01/17/18 06:33 Ozzy Bodies Not Reportable 01/17/18 06:33 Hem Pathologist Commnt No 01/17/18 06:33 D-Dimer 2713.80 ng/mlDDU (0-234) H 01/15/18 18:20 Sodium 137 mmol/L (137-145) 01/22/18 09:47 Potassium 2.4 mmol/L (3.6-5.0) L* D 01/22/18 09:47 Chloride 93.6 mmol/L (98-107) L 01/22/18 09:47 Carbon Dioxide 29 mmol/L (22-30) D 01/22/18 09:47 Anion Gap 17 mmol/L 01/22/18 09:47 BUN 7 mg/dL (7-17) 01/22/18 09:47 Creatinine 0.7 mg/dL (0.7-1.2) 01/22/18 09:47 Estimated GFR > 60 ml/min 01/22/18 09:47 BUN/Creatinine Ratio 10 % 01/22/18 09:47 Glucose 127 mg/dL (65-100) H 01/22/18 09:47 Lactic Acid 1.50 mmol/L (0.7-2.0) 01/15/18 21:19 Calcium 8.4 mg/dL (8.4-10.2) 01/22/18 09:47 Phosphorus 2.80 mg/dL (2.5-4.5) 01/22/18 09:47 Magnesium 1.80 mg/dL (1.7-2.3) 01/22/18 09:47 Total Bilirubin 0.40 mg/dL (0.1-1.2) 01/22/18 09:47 AST 20 units/L (5-40) 01/22/18 09:47 ALT 20 units/L (7-56) 01/22/18 09:47 Alkaline Phosphatase 80 units/L (35-129) 01/22/18 09:47 Total Protein 5.8 g/dL (6.3-8.2) L 01/22/18 09:47 Albumin 2.7 g/dL (3.9-5) L 01/22/18 09:47 Albumin/Globulin Ratio 0.9 % 01/22/18 09:47 Urine Color Yellow (Yellow) 01/15/18 18:45 Urine Turbidity Clear (Clear) 01/15/18 18:45 Urine pH 6.0 (5.0-7.0) 01/15/18 18:45 Ur Specific [place] 1.011 (1.003-1.030) 01/15/18 18:45 Urine Protein <15 mg/dl mg/dL (Negative) 01/15/18 18:45 Urine Glucose (UA) Neg mg/dL (Negative) 01/15/18 18:45 Urine Ketones Neg mg/dL (Negative) 01/15/18 18:45 Urine Blood Neg (Negative) 01/15/18 18:45 Urine Nitrite Pos (Negative) 01/15/18 18:45 Urine Bilirubin Neg (Negative) 01/15/18 18:45 Urine Urobilinogen < 2.0 mg/dL (<2.0) 01/15/18 18:45 Ur Leukocyte Esterase Tr (Negative) 01/15/18 18:45 Urine WBC (Auto) 1.0 /HPF (0.0-6.0) 01/15/18 18:45 Urine RBC (Auto) 1.0 /HPF (0.0-6.0) 01/15/18 18:45 Urine Mucus Few /HPF 01/15/18 18:45 Vancomycin Trough 13.1 ug/mL (5.0-20.0) 01/22/18 09:47 Urine Opiates Screen Presumptive negative 01/15/18 18:45 Urine Methadone Screen Presumptive negative 01/15/18 18:45 Ur Barbiturates Screen Presumptive negative 01/15/18 18:45 Ur Phencyclidine Scrn Presumptive negative 01/15/18 18:45 Ur Amphetamines Screen Presumptive positive 01/15/18 18:45 U Benzodiazepines Scrn Presumptive negative 01/15/18 18:45 Urine Cocaine Screen Presumptive negative 01/15/18 18:45 U Marijuana (THC) Screen Presumptive positive 01/15/18 18:45 Drugs of Abuse Note Disclamer 01/15/18 18:45
[2018-01-23] MEDS ORDERED: K-DUR PO ONE ×2 (12:00→20:00)
[2018-01-23] MEDS: VALIUM PO PRN ×2 (14:03→22:49)
[2018-01-23 16:05] LABS: Basophils % (Auto) 0.2 % (0.0-1.8); Eosinophils # (Auto) 0.2 K/mm3 (0.0-0.4); Hematocrit 26.6 % (30.3-42.9); Hemoglobin 8.4 gm/dl (10.1-14.3); Lymphocytes # (Auto) 1.1 K/mm3 (1.2-5.4); Lymphocytes % (Auto) 7.1 % (13.4-35.0); Mean Corpuscular HGB Conc 32 % (30-34); Mean Corpuscular Volume 80 fl (79-97); Monocytes # (Auto) 1.1 K/mm3 (0.0-0.8); Monocytes % (Auto) 6.9 % (0.0-7.3); Platelet Count 231 K/mm3 (140-440); Red Blood Count 3.33 M/mm3 (3.65-5.03); Red Cell Distribution Width 17.2 % (13.2-15.2)
[2018-01-23 16:15] LABS: Mean Corpuscular Hemoglobin 25 pg (28-32)
[2018-01-23 16:27] LABS: Alanine Aminotransferase 23 units/L (7-56); Albumin 2.7 g/dL (3.9-5); BUN/Creatinine Ratio 13; Blood Urea Nitrogen 8 mg/dL (7-17); Calcium 8.1 mg/dL (8.4-10.2); Hemolysis Index 10
[2018-01-23] MEDS: KCL 10MEQ/100ML 10 MEQ/100 ML BAG IV SCH (18:40)
[2018-01-24] MEDS: VANCOMYCIN 1,250 MG in NACL 0.9% 250ML 250 ML IV SCH ×2 (01:15→13:20)
[2018-01-24] MEDS: NORCO 10/325 PO PRN ×2 (05:20→10:46)
--- NOTE | 2018-01-24 10:05 | Progress Note ---
Assessment and Plan Assessment: 1) Sepsis: fever resolved, still leukocytosis; source MRSA bacteremia 2) MRSA bacteremia; source ? skin pustules - with persistent fever ? vancomycin failure -Blood cx 01/15 MRSA 4 of 4 bottles -Blood cx 01/19 negative -TTE EF 35%, mod AR/AE -CT lumbar spine w/o cont normal -MRI lumbar and thoracic no abscesses 3) Hyponatremia 4) Mild elevated LFTs - cholelithiasis 5) Chronic back pain - ? 6) Polysubstance abuse + Amph + marihuana Plan: -continue vancomycin, yesterday plan was to start daptomycin but she was not started and she is now afebrile on vanco -request WBC tagged scan to be done on -MICHAEL - pending -pt demanding to go home and considering leaving AMA - educated about possibility of and permanent consequences from untreated MRSA septicemia, still increasing leukocytosis -place PICC when blood cx neg for 48h -Preliminary OPAT - vancomycin 1250 mg IV q 12h total 4 weeks until 02/19/18 - sent to case folder again w jas I am rounding on 01/29, call me for questions Discussed with Dr Champ Conklin Subjective Date of service: 01/24/18 Principal diagnosis: sepsis, UTI and cholecystitis Interval history: Feels better still back pain. No fever for 24h. Micro: Blood cx 01/15 MRSA 4 of 4 bottles Blood cx 01/19 neg Blood cx 01/22 neg Abx: vanco 01/16 Previous abx: zosyn 01/16 Objective - Exam Narrative Exam: Alert in NAD anxious NC AT JSOY OP clear Neck no LN Lungs CTA daniel CV rrr +murmur Abd soft +TTP left flank Ext no edema Skin scatted nodular rash - Constitutional Vitals: Vital Signs Temp Pulse Resp BP Pulse Ox 98.7 F 122 H 20 179/95 85 01/24/18 05:51 01/24/18 05:51 01/24/18 05:51 01/24/18 05:51 01/24/18 05:51 Temperature -Last 24 Hours Temperature 98.7 F Temperature 99.4 F Temperature 98.4 F Temperature 98.6 F - Labs CBC & Chem 7: 01/23/18 15:39 01/23/18 15:49 Labs: Abnormal lab results 01/23/18 01/23/18 01/23/18 Range/Units 15:39 15:49 15:49 WBC 15.9 H (4.5-11.0) K/mm3 RBC 3.33 L (3.65-5.03) M/mm3 Hgb 8.4 L (10.1-14.3) gm/dl Hct 26.6 L (30.3-42.9) % MCH 25 L (28-32) pg RDW 17.2 H (13.2-15.2) % Lymph % (Auto) 7.1 L (13.4-35.0) % Lymph # 1.1 L (1.2-5.4) K/mm3 [place] # 1.1 H (0.0-0.8) K/mm3 Seg Neutrophils % 84.8 H (40.0-70.0) % Seg Neutrophils # 13.5 H (1.8-7.7) K/mm3 Sodium 135 L (137-145) mmol/L Potassium 3.0 L D 3.0 L (3.6-5.0) mmol/L Chloride 93.3 L (98-107) mmol/L Creatinine 0.6 L (0.7-1.2) mg/dL Glucose 118 H (65-100) mg/dL Calcium 8.1 L (8.4-10.2) mg/dL Total Protein 6.1 L (6.3-8.2) g/dL Albumin 2.7 L (3.9-5) g/dL
[2018-01-24] MEDS: HCTZ PO SCH (10:47)
[2018-01-24] MEDS: ZESTRIL PO SCH (10:47)
[2018-01-24] MEDS: LOPRESSOR PO SCH (10:47)
[2018-01-24] MEDS: VALIUM PO PRN (10:47)
[2018-01-24] MEDS: HABITROL TD SCH (10:48)
[2018-01-24 12:00] VITALS: BP 156/95
--- NOTE | 2018-01-24 13:05 | Progress Note ---
Assessment and Plan Assessment and plan: --Hypokalemia; replenished per protocol, monitor levels -- Sepsis: MRSA bacteremia Afebrile last 24 hours, follow cultures, Continue IV vancomycin ID following --MRSA bacteremia; probably from skin pustules - with persistent fever ? vancomycin failure Blood cx 01/15 MRSA 4 of 4 bottles Blood cx 01/19 negative TTE EF 35%, mod AR/AE CT lumbar spine w/o cont normal MRI lumbar and thoracic no abscesses -- Hyponatremia; improved, closely monitor -- cholelithiasis; stable --Acute cholecystitis; surgery evaluation the patient HIDA scan negative, ruled out --Polysubstance abuse + Amph + marihuana Counseling done patient strongly advised to quit recreational drug use History Interval history: Patient seen and examined medical records reviewed Patient is afebrile last 24 hours, feels better Patient wants to go home, no new complaints Vital signs reviewed Hospitalist Physical - Constitutional Vitals: Temp Pulse Resp BP Pulse Ox 98.8 F 101 H 20 156/95 97 01/24/18 11:51 01/24/18 11:51 01/24/18 11:51 01/24/18 11:51 01/24/18 11:51 General appearance: Present: no acute distress, well-nourished - EENT Eyes: Present: PERRL, EOM intact - Neck Neck: Present: supple, normal ROM - Respiratory Respiratory effort: normal Respiratory: bilateral: diminished, negative: rales, rhonchi, wheezing - Cardiovascular Rhythm: regular Heart Sounds: Present: S1 & S2 - Extremities Extremities: no ischemia, No edema Extremity abnormal: edema - Abdominal General gastrointestinal: soft, non-tender, non-distended, normal bowel sounds - Integumentary Integumentary: Present: clear, warm - Psychiatric Psychiatric: appropriate mood/affect, cooperative - Neurologic Neurologic: CNII-XII intact, moves all extremities Results - Labs CBC & Chem 7: 01/23/18 15:39 01/23/18 15:49 Labs: Laboratory Last Values WBC 15.9 K/mm3 (4.5-11.0) H 01/23/18 15:39 RBC 3.33 M/mm3 (3.65-5.03) L 01/23/18 15:39 Hgb 8.4 gm/dl (10.1-14.3) L 01/23/18 15:39 Hct 26.6 % (30.3-42.9) L 01/23/18 15:39 MCV 80 fl (79-97) 01/23/18 15:39 MCH 25 pg (28-32) L 01/23/18 15:39 MCHC 32 % (30-34) 01/23/18 15:39 RDW 17.2 % (13.2-15.2) H 01/23/18 15:39 Plt Count 231 K/mm3 (140-440) 01/23/18 15:39 Lymph % (Auto) 7.1 % (13.4-35.0) L 01/23/18 15:39 [place] % (Auto) 6.9 % (0.0-7.3) 01/23/18 15:39 Eos % (Auto) 1.0 % (0.0-4.3) 01/23/18 15:39 Baso % (Auto) 0.2 % (0.0-1.8) 01/23/18 15:39 Lymph # 1.1 K/mm3 (1.2-5.4) L 01/23/18 15:39 [place] # 1.1 K/mm3 (0.0-0.8) H 01/23/18 15:39 Eos # 0.2 K/mm3 (0.0-0.4) 01/23/18 15:39 Baso # 0.0 K/mm3 (0.0-0.1) 01/23/18 15:39 Add Manual Diff Complete 01/17/18 06:33 Total Counted 100 01/17/18 06:33 Seg Neutrophils % 84.8 % (40.0-70.0) H 01/23/18 15:39 Seg Neuts % (Manual) 79.0 % (40.0-70.0) H 01/17/18 06:33 Band Neutrophils % 12.0 % 01/17/18 06:33 Lymphocytes % (Manual) 5.0 % (13.4-35.0) L 01/17/18 06:33 Reactive Lymphs % (Man) 0 % 01/17/18 06:33 Monocytes % (Manual) 4.0 % (0.0-7.3) 01/17/18 06:33 Eosinophils % (Manual) 0 % (0.0-4.3) 01/17/18 06:33 Basophils % (Manual) 0 % (0.0-1.8) 01/17/18 06:33 Metamyelocytes % 0 % 01/17/18 06:33 Myelocytes % 0 % 01/17/18 06:33 Promyelocytes % 0 % 01/17/18 06:33 Blast Cells % 0 % 01/17/18 06:33 Nucleated RBC % Not Reportable 01/17/18 06:33 Seg Neutrophils # 13.5 K/mm3 (1.8-7.7) H 01/23/18 15:39 Seg Neutrophils # Man 11.5 K/mm3 (1.8-7.7) H 01/17/18 06:33 Band Neutrophils # 1.8 K/mm3 01/17/18 06:33 Lymphocytes # (Manual) 0.7 K/mm3 (1.2-5.4) L 01/17/18 06:33 Abs React Lymphs (Man) 0.0 K/mm3 01/17/18 06:33 Monocytes # (Manual) 0.6 K/mm3 (0.0-0.8) 01/17/18 06:33 Eosinophils # (Manual) 0.0 K/mm3 (0.0-0.4) 01/17/18 06:33 Basophils # (Manual) 0.0 K/mm3 (0.0-0.1) 01/17/18 06:33 Metamyelocytes # 0.0 K/mm3 01/17/18 06:33 Myelocytes # 0.0 K/mm3 01/17/18 06:33 Promyelocytes # 0.0 K/mm3 01/17/18 06:33 Blast Cells # 0.0 K/mm3 01/17/18 06:33 WBC Morphology Not Reportable 01/17/18 06:33 Hypersegmented Neuts Not Reportable 01/17/18 06:33 Hyposegmented Neuts Not Reportable 01/17/18 06:33 Hypogranular Neuts Not Reportable 01/17/18 06:33 Smudge Cells Not Reportable 01/17/18 06:33 Toxic Granulation Not Reportable 01/17/18 06:33 Toxic Vacuolation Not Reportable 01/17/18 06:33 Dohle Bodies Not Reportable 01/17/18 06:33 Pelger-Huet Anomaly Not Reportable 01/17/18 06:33 Nicolas Rods Not Reportable 01/17/18 06:33 Platelet Estimate Consistent w auto 01/17/18 06:33 Clumped Platelets Not Reportable 01/17/18 06:33 Plt Clumps, EDTA Not Reportable 01/17/18 06:33 Large Platelets Not Reportable 01/17/18 06:33 Giant Platelets Not Reportable 01/17/18 06:33 Platelet Satelliting Not Reportable 01/17/18 06:33 Plt Morphology Comment Not Reportable 01/17/18 06:33 RBC Morphology Not Reportable 01/17/18 06:33 Dimorphic RBCs Not Reportable 01/17/18 06:33 Polychromasia Not Reportable 01/17/18 06:33 Hypochromasia 1+ 01/17/18 06:33 Poikilocytosis Not Reportable 01/17/18 06:33 Anisocytosis 1+ 01/17/18 06:33 Microcytosis Not Reportable 01/17/18 06:33 Macrocytosis Not Reportable 01/17/18 06:33 Spherocytes Not Reportable 01/17/18 06:33 Pappenheimer Bodies Not Reportable 01/17/18 06:33 Sickle Cells Not Reportable 01/17/18 06:33 Target Cells Not Reportable 01/17/18 06:33 Tear Drop Cells Not Reportable 01/17/18 06:33 Ovalocytes Not Reportable 01/17/18 06:33 Helmet Cells Not Reportable 01/17/18 06:33 [place] Bodies Not Reportable 01/17/18 06:33 [place] Rings Not Reportable 01/17/18 06:33 [place] Cells Not Reportable 01/17/18 06:33 Bite Cells Not Reportable 01/17/18 06:33 Crenated Cell Not Reportable 01/17/18 06:33 Elliptocytes Not Reportable 01/17/18 06:33 Acanthocytes (Spur) Not Reportable 01/17/18 06:33 Rouleaux Not Reportable 01/17/18 06:33 Hemoglobin C Crystals Not Reportable 01/17/18 06:33 Schistocytes Not Reportable 01/17/18 06:33 Malaria parasites Not Reportable 01/17/18 06:33 Ozzy Bodies Not Reportable 01/17/18 06:33 Hem Pathologist Commnt No 01/17/18 06:33 D-Dimer 2713.80 ng/mlDDU (0-234) H 01/15/18 18:20 Sodium 135 mmol/L (137-145) L 01/23/18 15:49 Potassium 3.0 mmol/L (3.6-5.0) L D 01/23/18 15:49 Chloride 93.3 mmol/L (98-107) L 01/23/18 15:49 Carbon Dioxide 28 mmol/L (22-30) 01/23/18 15:49 Anion Gap 17 mmol/L 01/23/18 15:49 BUN 8 mg/dL (7-17) 01/23/18 15:49 Creatinine 0.6 mg/dL (0.7-1.2) L 01/23/18 15:49 Estimated GFR > 60 ml/min 01/23/18 15:49 BUN/Creatinine Ratio 13 % 01/23/18 15:49 Glucose 118 mg/dL (65-100) H 01/23/18 15:49 Lactic Acid 1.50 mmol/L (0.7-2.0) 01/15/18 21:19 Calcium 8.1 mg/dL (8.4-10.2) L 01/23/18 15:49 Phosphorus 2.80 mg/dL (2.5-4.5) 01/22/18 09:47 Magnesium 1.80 mg/dL (1.7-2.3) 01/22/18 09:47 Total Bilirubin 0.40 mg/dL (0.1-1.2) 01/23/18 15:49 AST 24 units/L (5-40) 01/23/18 15:49 ALT 23 units/L (7-56) 01/23/18 15:49 Alkaline Phosphatase 89 units/L (35-129) 01/23/18 15:49 Total Protein 6.1 g/dL (6.3-8.2) L 01/23/18 15:49 Albumin 2.7 g/dL (3.9-5) L 01/23/18 15:49 Albumin/Globulin Ratio 0.8 % 01/23/18 15:49 Urine Color Yellow (Yellow) 01/15/18 18:45 Urine Turbidity Clear (Clear) 01/15/18 18:45 Urine pH 6.0 (5.0-7.0) 01/15/18 18:45 Ur Specific [place] 1.011 (1.003-1.030) 01/15/18 18:45 Urine Protein <15 mg/dl mg/dL (Negative) 01/15/18 18:45 Urine Glucose (UA) Neg mg/dL (Negative) 01/15/18 18:45 Urine Ketones Neg mg/dL (Negative) 01/15/18 18:45 Urine Blood Neg (Negative) 01/15/18 18:45 Urine Nitrite Pos (Negative) 01/15/18 18:45 Urine Bilirubin Neg (Negative) 01/15/18 18:45 Urine Urobilinogen < 2.0 mg/dL (<2.0) 01/15/18 18:45 Ur Leukocyte Esterase Tr (Negative) 01/15/18 18:45 Urine WBC (Auto) 1.0 /HPF (0.0-6.0) 01/15/18 18:45 Urine RBC (Auto) 1.0 /HPF (0.0-6.0) 01/15/18 18:45 Urine Mucus Few /HPF 01/15/18 18:45 Vancomycin Trough 13.1 ug/mL (5.0-20.0) 01/22/18 09:47 Urine Opiates Screen Presumptive negative 01/15/18 18:45 Urine Methadone Screen Presumptive negative 01/15/18 18:45 Ur Barbiturates Screen Presumptive negative 01/15/18 18:45 Ur Phencyclidine Scrn Presumptive negative 01/15/18 18:45 Ur Amphetamines Screen Presumptive positive 01/15/18 18:45 U Benzodiazepines Scrn Presumptive negative 01/15/18 18:45 Urine Cocaine Screen Presumptive negative 01/15/18 18:45 U Marijuana (THC) Screen Presumptive positive 01/15/18 18:45 Drugs of Abuse Note Disclamer 01/15/18 18:45
[2018-01-24] MEDS ORDERED: LOVENOX SUB-Q SCH (22:00)
--- NOTE | 2018-01-24 22:01 | Discharge Summary ---
Providers - Providers Date of Admission: 01/16/18 03:30 Date of discharge: 01/24/18 Attending physician: JANETTE LIM 01/16/18 09:38 Consult to Physician [CONS] Routine Comment: Consulting Provider: ADRIANA SMITH Physician Instructions: Reason For Exam: Acute Cholecyctitis 01/17/18 11:52 Consult to Physician [CONS] Routine Comment: Consulting Provider: COURTNEY GALLARDO Physician Instructions: Reason For Exam: ?thoraic aortic aneurysm 01/17/18 15:41 Consult to Physician [CONS] Routine Comment: Consulting Provider: OLGA CASTILLO Physician Instructions: Reason For Exam: staph bacteremia 01/20/18 16:54 Consult to Dietitian/Nutrition [CONS] Routine Physician Instructions: Reason For Exam: Reason for Consult: Malnutrition 01/23/18 10:19 Consult to Case Management [CONS] Stat Services Needed at Discharge: Other Notified:: presentation specialist Additional Physician Instructions: [facility] M [phone] O [phone] F [phone] OUTPATIENT PARENTERAL ANTIBIOTIC THERAPY ORDERS Diagnoses: complicated MRSA septicemia Antimicrobial administration: vancomycin 1250 mg IV q 12h total 4 weeks until 02/19/18. Remove PICC line after last dose unless otherwise instructed. ID clinic f/u 02/15/18 please call my office for apt Lines: PICC Lab monitoring: CBC, CMP, CRP, vancomycin trough once a week preferly on Monday morning. Please fax results to [phone] and call [phone] for critical lab results. Olga Conklin Date: 01/24/18 01/23/18 12:03 PICC Line Placement [Consult to PICC Line RN] [CONS] Routine Reason For Exam: mcc antibiotics per ID Type Line:: PICC Primary care physician: TERRAZZO HELPER Hospitalization Condition: Stable Disposition: [id number] LEFT AGAINST MED ADVICE Exam - Constitutional Vitals: Temp Pulse Resp BP Pulse Ox 98.8 F 101 H 20 156/95 97 01/24/18 11:51 01/24/18 11:51 01/24/18 11:51 01/24/18 11:51 01/24/18 11:51 Plan Follow up with: PRIMARY CARE, [Primary Care Provider] - 3-5 Days
== END 2018-01-24 13:46 | disposition left against medical advice (07) | DRG 871 ==
LOC: ED 17:43 → 3A 01-16 03:30
PROVIDERS: ADMIT Internal Medicine; ATTEND Internal Medicine
DX: A41.9 Sepsis, unspecified organism (principal); J96.01 Acute respiratory failure with hypoxia; E87.1 Hypo-osmolality and hyponatremia; N12 Tubulo-interstitial nephritis, not specified as acute or chronic; K82.9 Disease of gallbladder, unspecified; I10 Essential (primary) hypertension; Z53.21 Procedure and treatment not carried out due to patient leaving prior to being seen by health care provider; D64.9 Anemia, unspecified; D69.6 Thrombocytopenia, unspecified; F19.10 Other psychoactive substance abuse, uncomplicated; F10.10 Alcohol abuse, uncomplicated; A49.01 Methicillin susceptible Staphylococcus aureus infection, unspecified site; G89.29 Other chronic pain; M54.9 Dorsalgia, unspecified; E87.6 Hypokalemia; K80.20 Calculus of gallbladder without cholecystitis without obstruction; Z71.6 Tobacco abuse counseling; Z87.891 Personal history of nicotine dependence
CPT/HCPCS: 36415; 71045; 71275; 72131; 72146; 72148; 74176; 76705; 78226; 80048; 80053; 80202; 80307; 81001; 82140; 83735; 84100; 84132; 85007; 85025; 85027; 85379; 86403; 87040; 87076; 87086; 87116; 87186; 93005; 93010; 93306; 99285; 99406; A9537; J1170; J1644; J2060; J2543; J3370; J3480; J7030; J7040; J7050; Q9967